=== PATIENT | male | born 1955 | race Caucasian/White ===

== ENCOUNTER 2019-08-07 07:34 | Inpatient (IN) | payer MEDICARE, MEDICAID ==
[~2019-08-07] VITALS: Ht 180.3 cm; Wt 114.8 kg
[2019-08-07 09:01] LABS: BASOPHILS % 0.8 % (0.0-2.0); EOSINOPHILS % 6.2 % (0.0-5.0); HEMATOCRIT. 33.2 % (42.0-52.0); HEMOGLOBIN. 11.3 g/dL (14.0-18.0); LYMPHOCYTES % 34.7 % (20.0-50.0); MEAN CORPUSCULAR HEMOGLOBIN 28.3 pg (28.0-32.0); MEAN CORPUSCULAR VOLUME 83.1 fL (80.0-94.0); MEAN PLATELET VOLUME 7.7 fl (7.4-10.4); MONOCYTES % 7.8 % (2.0-8.0); NEUTROPHILS % 50.5 % (40.0-76.0); PLATELET 228 x1000/uL (130-400); RED BLOOD CELL COUNT 3.99 mill/uL (4.7-6.1); RED CELL DISTRIBUTION WIDTH 14.3 % (11.6-14.6)
[2019-08-07 09:04] LABS: CHLORIDE 103 mEq/L (98-107)
[2019-08-07] MEDS ORDERED: FUROSEMIDE 40MG/4ML VIAL IVP ONE (11:15)
[2019-08-07] MEDS ORDERED: HYDROCODONE/ACETAMINOPHEN 5/325MG TABLET PO PRN (11:30)
[2019-08-07] MEDS ORDERED: CLINDAMYCIN 600 MG in DEXTROSE 5% WATER 50 ML IV ONE (11:30)
[2019-08-07] MEDS ORDERED: ACETAMINOPHEN 325MG TABLET PO PRN (11:30)
[2019-08-07] MEDS ORDERED: ONDANSETRON HCL 4MG/2ML INJ IV PRN (11:30)
[2019-08-07] MEDS ORDERED: CLINDAMYCIN 600MG PREMIX 50 ML IV NR (12:00)
[2019-08-07] MEDS ORDERED: ENOXAPARIN 40MG/0.4ML SYR SUBCUT ONE (12:00)
[2019-08-07 12:07] LABS: CLARITY URINE CLEAR (CLEAR); COLOR URINE YELLOW (YELLOW); KETONES URINE NEGATIVE (NEGATIVE); LEUKOCYTE ESTERASE URINE NEGATIVE (NEGATIVE); NITRITE URINE NEGATIVE (NEGATIVE); OCCULT BLOOD URINE TRACE (NEGATIVE); PH URINE 5.5 (4.5-8.0); PROTEIN URINE 2+ (NEGATIVE); UROBILINOGEN URINE 0.2 E.U./dL (0.2-1.0)
[2019-08-07 13:30] VITALS: BP 177/97
[2019-08-07] MEDS: AMLODIPINE 5MG TABLET PO SCH ×2 (15:29→21:13)
[2019-08-07] MEDS: ENOXAPARIN 30MG/0.3ML SYR SUBCUT SCH ×2 (15:30→21:13)
[2019-08-07 16:00] VITALS: BP 150/76
[2019-08-07] MEDS ORDERED: ATOR20TA65 MT (16:26)
[2019-08-07] MEDS ORDERED: LEVO100T9 PO (16:26)
[2019-08-07] MEDS ORDERED: SACU1TAB7 MT (16:26)
[2019-08-07] MEDS ORDERED: LOSA50TA41 MT (16:26)
[2019-08-07] MEDS ORDERED: ASPI-1393 MT (16:29)
[2019-08-07] MEDS ORDERED: CARV6.2548 MT (16:29)
[2019-08-07] MEDS ORDERED: CLONIDINE 0.1MG TABLET PO PRN (17:00)
[2019-08-07] MEDS: FUROSEMIDE 40MG/4ML VIAL IV SCH (17:43)
[2019-08-07] MEDS: POTASSIUM CHLORIDE 20MEQ TABLET SR PO SCH (17:44)
[2019-08-07 20:00] VITALS: BP 161/84
[2019-08-07] MEDS: ATORVASTATIN CALCIUM 10MG TABLET PO SCH (21:13)
[2019-08-07] MEDS: CARVEDILOL 6.25 MG TABLET PO SCH (21:13)
[2019-08-07 23:54] VITALS: BP 121/75
[2019-08-08 04:00] VITALS: BP 131/81
[2019-08-08] MEDS: FUROSEMIDE 40MG/4ML VIAL IV SCH ×2 (06:22→16:54)
[2019-08-08] MEDS: LEVOTHYROXINE SODIUM 100MCG TABLET PO SCH (06:22)
[2019-08-08 06:48] LABS: BASOPHILS % 0.9 % (0.0-2.0); EOSINOPHILS % 4.8 % (0.0-5.0); HEMATOCRIT. 34.1 % (42.0-52.0); HEMOGLOBIN. 11.7 g/dL (14.0-18.0); LYMPHOCYTES % 35.6 % (20.0-50.0); MEAN CORPUSCULAR HEMOGLOBIN 28.5 pg (28.0-32.0); MEAN PLATELET VOLUME 8.4 fl (7.4-10.4); MONOCYTES % 7.4 % (2.0-8.0); NEUTROPHILS % 51.3 % (40.0-76.0); PLATELET 215 x1000/uL (130-400); RED BLOOD CELL COUNT 4.11 mill/uL (4.7-6.1)
[2019-08-08 07:20] LABS: CHLORIDE 104 mEq/L (98-107)
[2019-08-08 07:26] LABS: PHOSPHORUS 4.5 mg/dL (2.5-4.9)
[2019-08-08 07:27] LABS: LDL CHOLESTEROL 81 mg/dL (5-100)
[2019-08-08 07:28] LABS: HDL CHOLESTEROL 26 mg/dL (40-59)
[2019-08-08 08:00] VITALS: BP 155/73
[2019-08-08] MEDS ORDERED: FUROSEMIDE 40MG/4ML VIAL IV SCH ×2 (08:30→09:00)
[2019-08-08] MEDS: POTASSIUM CHLORIDE 20MEQ TABLET SR PO SCH ×2 (09:01→16:54)
[2019-08-08] MEDS: AMLODIPINE 5MG TABLET PO SCH ×2 (09:01→20:42)
[2019-08-08] MEDS: ENOXAPARIN 30MG/0.3ML SYR SUBCUT SCH ×2 (09:02→20:42)
[2019-08-08] MEDS: CARVEDILOL 6.25 MG TABLET PO SCH ×2 (09:02→20:42)
[2019-08-08 12:00] VITALS: BP 118/63
[2019-08-08] MEDS: ASPIRIN 81MG EC TABLET PO SCH (13:29)
[2019-08-08 16:00] VITALS: BP 130/76
[2019-08-08 16:54] LABS: PHOSPHORUS 4.6 mg/dL (2.5-4.9)
[2019-08-08 20:00] VITALS: BP 124/81
[2019-08-08] MEDS: ATORVASTATIN CALCIUM 10MG TABLET PO SCH (20:42)
[2019-08-09] VITALS: BP 130/55
[2019-08-09 04:00] VITALS: BP 122/74
[2019-08-09] MEDS: LEVOTHYROXINE SODIUM 100MCG TABLET PO SCH (06:45)
[2019-08-09] MEDS: FUROSEMIDE 40MG/4ML VIAL IV SCH (06:45)
[2019-08-09 07:33] LABS: CHLORIDE 101 mEq/L (98-107)
[2019-08-09 07:34] LABS: BASOPHILS % 0.9 % (0.0-2.0); EOSINOPHILS % 4.8 % (0.0-5.0); HEMATOCRIT. 34.9 % (42.0-52.0); HEMOGLOBIN. 11.7 g/dL (14.0-18.0); MEAN CORPUSCULAR VOLUME 83.2 fL (80.0-94.0); MEAN PLATELET VOLUME 7.9 fl (7.4-10.4); MONOCYTES % 7.4 % (2.0-8.0); NEUTROPHILS % 43.9 % (40.0-76.0); PLATELET 239 x1000/uL (130-400); RED BLOOD CELL COUNT 4.19 mill/uL (4.7-6.1); RED CELL DISTRIBUTION WIDTH 14.1 % (11.6-14.6)
[2019-08-09 08:00] VITALS: BP 131/83
[2019-08-09] MEDS: POTASSIUM CHLORIDE 20MEQ TABLET SR PO SCH (09:00)
[2019-08-09] MEDS: ASPIRIN 81MG EC TABLET PO SCH (09:00)
[2019-08-09] MEDS: ENOXAPARIN 30MG/0.3ML SYR SUBCUT SCH (09:01)
[2019-08-09] MEDS: CARVEDILOL 6.25 MG TABLET PO SCH (09:01)
[2019-08-09] MEDS: AMLODIPINE 5MG TABLET PO SCH (09:01)
[2019-08-09 09:08] LABS: BG BASE EXCESS 2.5 mmol/L (-2.0-2.0); BG CARBOXYHEMOGLOBIN 0.9 % (0.5-1.5); BG DEOXYHEMOGLOBIN 6.8 % (0.0-5.0); BG FRACTION INSPIRED OXYGEN 21; BG HCO3 ACT 27.5 mmol/L (22.0-26.0); BG METHEMOGLOBIN 0.2 % (0.0-1.5); BG OXYGEN SATURATION 93.1 % (92.0-98.5); BG OXYHEMOGLOBIN 92.1 % (94.0-97.0); BG PH 7.413 (7.350-7.450); BG PO2 68.8 mmHg (75.0-100.0); BG SAMPLE SITE RIGHT RADIAL; BG TOTAL HEMOGLOBIN 12.8 g/dL (12.0-18.0); BG VENT MODE ROOM AIR
[2019-08-09 12:00] VITALS: BP 119/67
[2019-08-09 13:37] VITALS: BP 119/67
[2019-08-10] MEDS ORDERED: FUROSEMIDE 40MG/4ML VIAL IV SCH (09:00)
== END 2019-08-09 15:17 | disposition home or self-care (01) | DRG 602 ==
LOC: ER 07:34 → 8WST 11:25 → EDBEDREQSVC 11:48 → EDBEDREQ 11:49 → ENRESERV 12:15
PROVIDERS: ADMIT Family Medicine Adult Medicine; ATTEND Family Medicine Adult Medicine
DX: L03.115 Cellulitis of right lower limb (principal); N17.0 Acute kidney failure with tubular necrosis; N18.6 End stage renal disease; I13.2 Hypertensive heart and chronic kidney disease with heart failure and with stage 5 chronic kidney disease, or end stage renal disease; I42.0 Dilated cardiomyopathy; L03.116 Cellulitis of left lower limb; E03.9 Hypothyroidism, unspecified; E78.5 Hyperlipidemia, unspecified; E87.6 Hypokalemia; F32.9 Major depressive disorder, single episode, unspecified; M10.9 Gout, unspecified; I34.0 Nonrheumatic mitral (valve) insufficiency; I44.0 Atrioventricular block, first degree; I50.9 Heart failure, unspecified; Z79.899 Other long term (current) drug therapy; Z82.49 Family history of ischemic heart disease and other diseases of the circulatory system; Z91.14 Patient's other noncompliance with medication regimen; Z91.19 Patient's noncompliance with other medical treatment and regimen; Z99.2 Dependence on renal dialysis
CPT/HCPCS: 36415; 36600; 71045; 76770; 80048; 80061; 81003; 82375; 82805; 83735; 83880; 84100; 84443; 84484; 93005; 93306; 93970; 96365; 96375; 97161; 97165; 99285; G0378; J1650; J1940; J3490

== ENCOUNTER 2021-05-14 01:19 | Inpatient (IN) | payer MEDICARE, OTHER ==
[~2021-05-14] VITALS: Ht 180.3 cm; Wt 113.9 kg
[~2021-05-14 01:19] MED LIST: ASPI-1497 PO; ATOR20TA65 PO; CARV6.2548 MT; LEVO100T9 PO; LOSA50TA41 MT; SACU1TAB7 MT
[2021-05-14] MEDS ORDERED: ASPIRIN 81MG TABLET PO ONE (02:45)
[2021-05-14] MEDS ORDERED: ENALAPRIL 2.5MG/2ML VIAL 2ML IV ONE (02:45)
[2021-05-14] MEDS ORDERED: NITROGLYCERIN OINT 1GM/INCH UDPKT TD ONE (02:45)
[2021-05-14] MEDS ORDERED: ENALAPRIL 1.25MG/ML VIAL 1ML IV NR (03:00)
[2021-05-14 03:19] LABS: BASOPHILS % 1.2 % (0.0-2.0); EOSINOPHILS % 4.9 % (0.0-5.0); HEMATOCRIT. 38.1 % (42.0-52.0); HEMOGLOBIN. 12.6 g/dL (14.0-18.0); LYMPHOCYTES % 36.3 % (20.0-50.0); MEAN CORPUSCULAR HEMOGLOBIN 28.1 pg (28.0-32.0); MEAN CORPUSCULAR VOLUME 84.8 fL (80.0-94.0); MEAN PLATELET VOLUME 8.2 fl (7.4-10.4); MONOCYTES % 6.3 % (2.0-8.0); NEUTROPHILS % 51.3 % (40.0-76.0); PLATELET 222 x1000/uL (130-400); RED CELL DISTRIBUTION WIDTH 13.5 % (11.6-14.6)
[2021-05-14 03:29] LABS: CHLORIDE 106 mEq/L (98-107)
[2021-05-14] MEDS: CLONIDINE 0.1MG TABLET PO PRN (06:57)
[2021-05-14] MEDS ORDERED: ACETAMINOPHEN 325MG TABLET PO PRN (07:15)
[2021-05-14 08:00] VITALS: BP_SYST 139; BP_SYST 195; BP_DIAS 124; BP_DIAS 98
[2021-05-14] MEDS: LOSARTAN POTASSIUM 50 MG TABLET PO SCH (08:08)
[2021-05-14] MEDS: ENOXAPARIN 40MG/0.4ML SYR SUBCUT SCH (08:09)
[2021-05-14] MEDS: CARVEDILOL 12.5MG TABLET PO SCH ×2 (08:09→20:35)
[2021-05-14] MEDS ORDERED: ONDANSETRON HCL 4MG/2ML INJ IV PRN (10:00)
[2021-05-14] MEDS ORDERED: MAGNESIUM/ALUMINUM HYDROXIDE/SIMETHICONE 30ML UDC PO PRN (10:00)
[2021-05-14] MEDS ORDERED: HYDROCODONE/ACETAMINOPHEN 5/325MG TABLET PO PRN (10:00)
[2021-05-14] MEDS ORDERED: NALOXONE HCL 0.4MG/ML VIAL IV PRN (10:15)
[2021-05-14] MEDS: SODIUM CHLORIDE 0.9% 1,000 ML IV SCH ×2 (10:19→23:56)
[2021-05-14] MEDS: OMEPRAZOLE 20MG CAPSULE EXTENDED RELEASE PO SCH (10:19)
[2021-05-14 12:00] VITALS: BP 150/82
[2021-05-14] MEDS: CLONIDINE 0.2MG TABLET PO SCH ×2 (13:00→20:36)
[2021-05-14 13:07] LABS: *AMPHETAMINES SCREEN URINE NEGATIVE (NEGATIVE); *BARBITURATES SCREEN URINE NEGATIVE (NEGATIVE); *BENZODIAZEPINES SCREEN URINE NEGATIVE (NEGATIVE)
[2021-05-14 13:08] LABS: *COCAINE SCREEN URINE NEGATIVE (NEGATIVE); CANNABINOID URINE SCREEN NEGATIVE (NEGATIVE); OPIATES URINE SCREEN NEGATIVE (NEGATIVE); PHENCYCLIDINE URINE SCREEN NEGATIVE (NEGATIVE)
[2021-05-14 13:13] LABS: METHADONE URINE SCREEN NEGATIVE (NEGATIVE)
[2021-05-14 15:47] VITALS: BP 144/80
[2021-05-14 20:00] VITALS: BP 145/72
[2021-05-14] MEDS: ATORVASTATIN CALCIUM 20MG TABLET PO SCH (20:35)
[2021-05-15] VITALS: BP 147/69
[2021-05-15 04:00] VITALS: BP 152/87
[2021-05-15] MEDS: OMEPRAZOLE 20MG CAPSULE EXTENDED RELEASE PO SCH (05:17)
[2021-05-15] MEDS: CLONIDINE 0.2MG TABLET PO SCH ×3 (05:17→21:02)
[2021-05-15 05:32] LABS: PHOSPHORUS 3.7 mg/dL (2.5-4.9)
[2021-05-15 05:39] LABS: T4 FREE 0.46 ng/dL (0.76-1.46)
[2021-05-15 05:54] LABS: BASOPHILS % 0.8 % (0.0-2.0); EOSINOPHILS % 5.3 % (0.0-5.0); HEMATOCRIT. 33.4 % (42.0-52.0); HEMOGLOBIN. 11.3 g/dL (14.0-18.0); LYMPHOCYTES % 44.1 % (20.0-50.0); MEAN CORPUSCULAR HEMOGLOBIN 28.3 pg (28.0-32.0); MEAN CORPUSCULAR VOLUME 83.4 fL (80.0-94.0); MEAN PLATELET VOLUME 8.6 fl (7.4-10.4); MONOCYTES % 6.1 % (2.0-8.0); NEUTROPHILS % 43.7 % (40.0-76.0); PLATELET 189 x1000/uL (130-400); RED CELL DISTRIBUTION WIDTH 13.6 % (11.6-14.6)
[2021-05-15 08:00] VITALS: BP 143/78
[2021-05-15] MEDS: ENOXAPARIN 40MG/0.4ML SYR SUBCUT SCH (08:29)
[2021-05-15] MEDS: CARVEDILOL 12.5MG TABLET PO SCH ×2 (08:29→20:28)
[2021-05-15] MEDS: LOSARTAN POTASSIUM 50 MG TABLET PO SCH (08:29)
[2021-05-15 12:00] VITALS: BP 123/69
[2021-05-15] MEDS: SODIUM CHLORIDE 0.9% 1,000 ML IV SCH (12:32)
[2021-05-15 16:00] VITALS: BP 162/76
[2021-05-15] MEDS: LEVOTHYROXINE SODIUM 100MCG TABLET PO SCH (16:58)
[2021-05-15 20:00] VITALS: BP 153/84
[2021-05-15] MEDS: ATORVASTATIN CALCIUM 20MG TABLET PO SCH (21:02)
[2021-05-15] MEDS: ENOXAPARIN 30MG/0.3ML SYR SUBCUT SCH (21:03)
[2021-05-16] VITALS: BP 141/84
[2021-05-16] MEDS: SODIUM CHLORIDE 0.9% 1,000 ML IV SCH ×2 (02:06→14:37)
[2021-05-16 04:00] VITALS: BP 172/87
[2021-05-16] MEDS: CLONIDINE 0.2MG TABLET PO SCH ×3 (05:39→21:31)
[2021-05-16] MEDS: OMEPRAZOLE 20MG CAPSULE EXTENDED RELEASE PO SCH (05:40)
[2021-05-16] MEDS: LEVOTHYROXINE SODIUM 100MCG TABLET PO SCH (05:40)
[2021-05-16 07:38] LABS: BASOPHILS % 0.7 % (0.0-2.0); HEMOGLOBIN. 11.7 g/dL (14.0-18.0); LYMPHOCYTES % 42.8 % (20.0-50.0); MEAN CORPUSCULAR HEMOGLOBIN 27.6 pg (28.0-32.0); MEAN CORPUSCULAR VOLUME 82.7 fL (80.0-94.0); MEAN PLATELET VOLUME 8.4 fl (7.4-10.4); NEUTROPHILS % 43.5 % (40.0-76.0); PLATELET 198 x1000/uL (130-400); RED BLOOD CELL COUNT 4.23 mill/uL (4.7-6.1); RED CELL DISTRIBUTION WIDTH 13.8 % (11.6-14.6)
[2021-05-16 08:00] VITALS: BP 171/90
[2021-05-16] MEDS: LOSARTAN POTASSIUM 50 MG TABLET PO SCH (09:05)
[2021-05-16] MEDS: ASPIRIN 81MG EC TABLET PO SCH (09:05)
[2021-05-16] MEDS: CARVEDILOL 12.5MG TABLET PO SCH ×2 (09:06→21:00)
[2021-05-16] MEDS: ENOXAPARIN 30MG/0.3ML SYR SUBCUT SCH ×2 (09:06→21:30)
[2021-05-16] MEDS ORDERED: REGADENOSON 0.4 MG/5 ML IV NR (10:15)
[2021-05-16 12:00] VITALS: BP 137/70
[2021-05-16 16:00] VITALS: BP 145/75
[2021-05-16 20:00] VITALS: BP 128/79
[2021-05-16] MEDS: AMLODIPINE 5MG TABLET PO SCH (21:30)
[2021-05-16] MEDS: FAMOTIDINE 20MG TABLET PO SCH (21:30)
[2021-05-16] MEDS: ATORVASTATIN CALCIUM 20MG TABLET PO SCH (21:30)
[2021-05-16 23:49] LABS: CLARITY URINE CLEAR (CLEAR); COLOR URINE YELLOW (YELLOW); KETONES URINE NEGATIVE (NEGATIVE); LEUKOCYTE ESTERASE URINE NEGATIVE (NEGATIVE); NITRITE URINE NEGATIVE (NEGATIVE); OCCULT BLOOD URINE NEGATIVE (NEGATIVE); PH URINE 5.5 (4.5-8.0); PROTEIN URINE NEGATIVE (NEGATIVE); SPECIFIC GRAVITY URINE 1.006 (1.005-1.030); UROBILINOGEN URINE 0.2 E.U./dL (0.2-1.0)
[2021-05-17] VITALS: BP 162/85
[2021-05-17] MEDS: CLONIDINE 0.1MG TABLET PO PRN (00:19)
[2021-05-17] MEDS: SODIUM CHLORIDE 0.9% 1,000 ML IV SCH ×2 (03:29→17:25)
[2021-05-17 04:00] VITALS: BP 161/91
[2021-05-17] MEDS: CLONIDINE 0.2MG TABLET PO SCH ×3 (04:27→23:13)
[2021-05-17] MEDS: FAMOTIDINE 20MG TABLET PO SCH ×2 (05:50→21:07)
[2021-05-17] MEDS: LEVOTHYROXINE SODIUM 100MCG TABLET PO SCH (05:50)
[2021-05-17 06:40] LABS: BASOPHILS % 0.9 % (0.0-2.0); EOSINOPHILS % 6.9 % (0.0-5.0); HEMATOCRIT. 35.2 % (42.0-52.0); HEMOGLOBIN. 11.9 g/dL (14.0-18.0); LYMPHOCYTES % 45.5 % (20.0-50.0); MEAN CORPUSCULAR HEMOGLOBIN 28.4 pg (28.0-32.0); MEAN CORPUSCULAR VOLUME 84.2 fL (80.0-94.0); MEAN PLATELET VOLUME 8.4 fl (7.4-10.4); MONOCYTES % 6.6 % (2.0-8.0); NEUTROPHILS % 40.1 % (40.0-76.0); PLATELET 190 x1000/uL (130-400); RED BLOOD CELL COUNT 4.18 mill/uL (4.7-6.1); RED CELL DISTRIBUTION WIDTH 13.7 % (11.6-14.6)
[2021-05-17 08:00] VITALS: BP 158/89
[2021-05-17] MEDS: CARVEDILOL 12.5MG TABLET PO SCH ×2 (09:00→21:00)
[2021-05-17] MEDS: LOSARTAN POTASSIUM 50 MG TABLET PO SCH (09:00)
[2021-05-17] MEDS: AMLODIPINE 5MG TABLET PO SCH ×2 (09:08→21:08)
[2021-05-17] MEDS: ASPIRIN 81MG EC TABLET PO SCH (09:08)
[2021-05-17] MEDS: ENOXAPARIN 30MG/0.3ML SYR SUBCUT SCH ×2 (09:08→21:10)
[2021-05-17 09:33] LABS: PHOSPHORUS 3.3 mg/dL (2.5-4.9)
[2021-05-17] MEDS ORDERED: REGADENOSON 0.4 MG/5 ML IV ONE (10:06)
[2021-05-17 12:00] VITALS: BP 141/79
[2021-05-17 16:00] VITALS: BP 116/76
[2021-05-17 20:00] VITALS: BP 128/71
[2021-05-17] MEDS: ATORVASTATIN CALCIUM 20MG TABLET PO SCH (21:07)
[2021-05-18] VITALS: BP 146/75
[2021-05-18 04:00] VITALS: BP 143/93
[2021-05-18] MEDS: LEVOTHYROXINE SODIUM 100MCG TABLET PO SCH (04:58)
[2021-05-18] MEDS: FAMOTIDINE 20MG TABLET PO SCH ×2 (04:58→20:55)
[2021-05-18] MEDS: CLONIDINE 0.2MG TABLET PO SCH (04:59)
[2021-05-18] MEDS: SODIUM CHLORIDE 0.9% 1,000 ML IV SCH (05:07)
[2021-05-18 06:25] LABS: CHLORIDE 108 mEq/L (98-107)
[2021-05-18 06:37] LABS: PHOSPHORUS 3.2 mg/dL (2.5-4.9)
[2021-05-18 06:50] LABS: BASOPHILS % 0.6 % (0.0-2.0); EOSINOPHILS % 7.8 % (0.0-5.0); HEMATOCRIT. 34.9 % (42.0-52.0); HEMOGLOBIN. 11.8 g/dL (14.0-18.0); MEAN CORPUSCULAR VOLUME 82.5 fL (80.0-94.0); MEAN PLATELET VOLUME 8.7 fl (7.4-10.4); MONOCYTES % 6.1 % (2.0-8.0); NEUTROPHILS % 42.5 % (40.0-76.0); PLATELET 193 x1000/uL (130-400); RED BLOOD CELL COUNT 4.23 mill/uL (4.7-6.1); RED CELL DISTRIBUTION WIDTH 13.8 % (11.6-14.6)
[2021-05-18 07:52] LABS: VITAMIN B12 SERUM 320 pg/mL (211-911)
[2021-05-18 08:00] VITALS: BP 180/84
[2021-05-18] MEDS ORDERED: HEPARIN SODIUM 1,000 UNIT/1ML VIAL IV ONE (08:27)
[2021-05-18] MEDS ORDERED: NICARDIPINE 100MCG/ML 10ML VIAL (CATH LAB) IV ONE (08:27)
[2021-05-18] MEDS ORDERED: NITROGLYCERIN 50MCG/ML 10ML VIAL (CATH LAB) IV ONE (08:27)
[2021-05-18] MEDS: CARVEDILOL 12.5MG TABLET PO SCH (09:00)
[2021-05-18] MEDS: LOSARTAN POTASSIUM 50 MG TABLET PO SCH (09:40)
[2021-05-18] MEDS: AMLODIPINE 5MG TABLET PO SCH (09:40)
[2021-05-18] MEDS: ASPIRIN 81MG EC TABLET PO SCH (09:40)
[2021-05-18] MEDS ORDERED: COSYNTROPIN 0.25MG/ML VIAL IV NR (10:00)
[2021-05-18] MEDS ORDERED: IODIXANOL 320MG/ML 100 ML BOTTLE IV ONE (10:53)
[2021-05-18] MEDS ORDERED: LIDOCAINE HCL 1% 20ML VIAL (Pyxis) INJ ONE (10:53)
[2021-05-18] MEDS ORDERED: FENTANYL CITRATE/PF 50MCG/ML 2ML VIAL ONE (10:54)
[2021-05-18] MEDS ORDERED: MIDAZOLAM HCL 2 MG/2 ML VIAL ONE (10:54)
[2021-05-18] MEDS ORDERED: ACETAMINOPHEN 325MG TABLET PO PRN (12:15)
[2021-05-18] MEDS ORDERED: ATROPINE SULFATE 1MG/10ML SYR IV PRN (12:15)
[2021-05-18] MEDS: NIFEDIPINE XL 60MG TAB PO SCH (14:58)
[2021-05-18 16:00] VITALS: BP 169/83
[2021-05-18] MEDS: SODIUM CHL 0.45% + KCL 20MEQ/L 1,000 ML IV SCH (17:45)
[2021-05-18 20:00] VITALS: BP 126/78
[2021-05-18] MEDS: ATORVASTATIN CALCIUM 20MG TABLET PO SCH (20:55)
[2021-05-18] MEDS: CARVEDILOL 6.25 MG TABLET PO SCH (20:55)
[2021-05-18 22:00] VITALS: BP 93/54
[2021-05-19] VITALS (11 sets, daily range): BP systolic 106–146; BP diastolic 60–85
[2021-05-19] MEDS: SODIUM CHL 0.45% + KCL 20MEQ/L 1,000 ML IV SCH (04:51)
[2021-05-19] MEDS: LEVOTHYROXINE SODIUM 100MCG TABLET PO SCH (06:19)
[2021-05-19] MEDS: FAMOTIDINE 20MG TABLET PO SCH ×2 (06:19→21:27)
[2021-05-19] MEDS ORDERED: HYDROCORTISONE SOD SUCCINATE 100 MG/2 ML VIAL IV SCH (08:30)
[2021-05-19] MEDS: LOSARTAN POTASSIUM 50 MG TABLET PO SCH (09:00)
[2021-05-19] MEDS: NIFEDIPINE XL 60MG TAB PO SCH (09:00)
[2021-05-19] MEDS: CARVEDILOL 6.25 MG TABLET PO SCH ×2 (09:00→21:28)
[2021-05-19 09:06] LABS: FOLICLE STIMULATING HORMONE 1.2 mIU/mL (1.5-12.4); LUTEINIZING HORMONE 0.5 mIU/mL (1.7-8.6); PROLACTIN 19.6 ng/mL (4.0-15.2)
[2021-05-19] MEDS: ASPIRIN 81MG EC TABLET PO SCH (09:31)
[2021-05-19] MEDS: SODIUM CHLORIDE 0.9% 1,000 ML IV SCH ×2 (09:43→22:52)
[2021-05-19 10:47] LABS: HEMOGLOBIN. 12.4 g/dL (14.0-18.0); LYMPHOCYTES % 38.6 % (20.0-50.0); MEAN CORPUSCULAR HEMOGLOBIN 28.2 pg (28.0-32.0); MEAN CORPUSCULAR VOLUME 83.9 fL (80.0-94.0); MEAN PLATELET VOLUME 8.6 fl (7.4-10.4); MONOCYTES % 4.8 % (2.0-8.0); NEUTROPHILS % 50.6 % (40.0-76.0); PLATELET 218 x1000/uL (130-400); RED BLOOD CELL COUNT 4.41 mill/uL (4.7-6.1); RED CELL DISTRIBUTION WIDTH 13.6 % (11.6-14.6)
[2021-05-19 11:21] LABS: PHOSPHORUS 3.4 mg/dL (2.5-4.9)
[2021-05-19] MEDS ORDERED: MIDAZOLAM HCL 2 MG/2 ML VIAL ONE (14:32)
[2021-05-19] MEDS ORDERED: FENTANYL CITRATE/PF 50MCG/ML 2ML VIAL ONE (14:33)
[2021-05-19] MEDS ORDERED: IODIXANOL 320MG/ML 100 ML BOTTLE IV ONE (14:33)
[2021-05-19] MEDS ORDERED: LIDOCAINE HCL 1% 20ML VIAL (Pyxis) INJ ONE (14:33)
[2021-05-19] MEDS ORDERED: IOHEXOL-300 100 ML BOTTLE ONE (14:34)
[2021-05-19] MEDS ORDERED: HEPARIN SODIUM 1,000 UNIT/1ML VIAL IV ONE (16:00)
[2021-05-19] MEDS ORDERED: NICARDIPINE 100MCG/ML 10ML VIAL (CATH LAB) IV ONE (16:00)
[2021-05-19] MEDS ORDERED: NITROGLYCERIN 50MCG/ML 10ML VIAL (CATH LAB) IV ONE (16:00)
[2021-05-19] MEDS ORDERED: ATROPINE SULFATE 1MG/10ML SYR IV PRN (16:15)
[2021-05-19] MEDS ORDERED: ONDANSETRON HCL 4MG/2ML INJ IV PRN (16:15)
[2021-05-19] MEDS ORDERED: CLOPIDOGREL 75MG TABLET ONE (16:18)
[2021-05-19] MEDS ORDERED: ASPIRIN 325MG TABLET ONE (16:18)
[2021-05-19] MEDS ORDERED: MIDAZOLAM HCL 5 MG/5 ML VIAL ONE (17:18)
[2021-05-19] MEDS ORDERED: FENTANYL CITRATE/PF 50MCG/ML 5ML VIAL ONE (17:18)
[2021-05-19] MEDS: SERTRALINE HCL 25MG TABLET PO SCH (17:48)
[2021-05-19] MEDS: HYDROCORTISONE 10MG TABLET PO SCH (18:01)
[2021-05-19] MEDS: ATORVASTATIN CALCIUM 20MG TABLET PO SCH (21:27)
[2021-05-20] VITALS (11 sets, daily range): BP systolic 123–186; BP diastolic 65–99
[2021-05-20] MEDS: LEVOTHYROXINE SODIUM 100MCG TABLET PO SCH (05:58)
[2021-05-20] MEDS: FAMOTIDINE 20MG TABLET PO SCH ×2 (05:58→21:13)
[2021-05-20 06:37] LABS: BASOPHILS % 0.6 % (0.0-2.0); EOSINOPHILS % 1.7 % (0.0-5.0); HEMATOCRIT. 36.8 % (42.0-52.0); HEMOGLOBIN. 12.4 g/dL (14.0-18.0); LYMPHOCYTES % 27.6 % (20.0-50.0); MEAN CORPUSCULAR HEMOGLOBIN 27.9 pg (28.0-32.0); MEAN CORPUSCULAR VOLUME 83.1 fL (80.0-94.0); MEAN PLATELET VOLUME 8.1 fl (7.4-10.4); MONOCYTES % 6.4 % (2.0-8.0); NEUTROPHILS % 63.7 % (40.0-76.0); PLATELET 251 x1000/uL (130-400); RED BLOOD CELL COUNT 4.43 mill/uL (4.7-6.1); RED CELL DISTRIBUTION WIDTH 13.8 % (11.6-14.6)
[2021-05-20 06:43] LABS: PHOSPHORUS 2.8 mg/dL (2.5-4.9)
[2021-05-20] MEDS: ASPIRIN 81MG EC TABLET PO SCH (09:22)
[2021-05-20] MEDS: CLOPIDOGREL 75MG TABLET PO SCH (09:23)
[2021-05-20] MEDS: LOSARTAN POTASSIUM 100 MG TABLET PO SCH (09:23)
[2021-05-20] MEDS: HYDROCORTISONE 10MG TABLET PO SCH ×2 (09:23→17:12)
[2021-05-20] MEDS: SERTRALINE HCL 25MG TABLET PO SCH (09:23)
[2021-05-20] MEDS: NIFEDIPINE XL 60MG TAB PO SCH (09:25)
[2021-05-20] MEDS: CARVEDILOL 6.25 MG TABLET PO SCH ×2 (09:25→21:13)
[2021-05-20] MEDS: SODIUM CHLORIDE 0.9% 1,000 ML IV SCH (14:21)
[2021-05-20] MEDS: ATORVASTATIN CALCIUM 20MG TABLET PO SCH (21:12)
[2021-05-21] VITALS (7 sets, daily range): BP systolic 130–169; BP diastolic 68–98
[2021-05-21] MEDS: CLONIDINE 0.1MG TABLET PO PRN (02:52)
[2021-05-21] MEDS: ACETAMINOPHEN 325MG TABLET PO PRN ×2 (03:10→12:31)
[2021-05-21] MEDS: SODIUM CHLORIDE 0.9% 1,000 ML IV SCH (06:06)
[2021-05-21] MEDS: LEVOTHYROXINE SODIUM 100MCG TABLET PO SCH (06:06)
[2021-05-21] MEDS: FAMOTIDINE 20MG TABLET PO SCH (06:48)
[2021-05-21 07:12] LABS: TESTOSTERONE FREE <0.2 pg/mL (6.6-18.1)
[2021-05-21] MEDS: CLOPIDOGREL 75MG TABLET PO SCH (08:17)
[2021-05-21 08:18] LABS: BASOPHILS % 1.2 % (0.0-2.0); EOSINOPHILS % 3.6 % (0.0-5.0); HEMATOCRIT. 36.5 % (42.0-52.0); HEMOGLOBIN. 12.2 g/dL (14.0-18.0); LYMPHOCYTES % 38.4 % (20.0-50.0); MEAN CORPUSCULAR HEMOGLOBIN 27.8 pg (28.0-32.0); MEAN CORPUSCULAR VOLUME 83.1 fL (80.0-94.0); MEAN PLATELET VOLUME 8.2 fl (7.4-10.4); MONOCYTES % 5.2 % (2.0-8.0); NEUTROPHILS % 51.6 % (40.0-76.0); PLATELET 259 x1000/uL (130-400); RED BLOOD CELL COUNT 4.39 mill/uL (4.7-6.1); RED CELL DISTRIBUTION WIDTH 13.5 % (11.6-14.6)
[2021-05-21] MEDS: ASPIRIN 81MG EC TABLET PO SCH (08:18)
[2021-05-21] MEDS: HYDROCORTISONE 10MG TABLET PO SCH (08:18)
[2021-05-21] MEDS: LOSARTAN POTASSIUM 100 MG TABLET PO SCH (08:18)
[2021-05-21] MEDS: NIFEDIPINE XL 60MG TAB PO SCH (08:18)
[2021-05-21] MEDS: SERTRALINE HCL 25MG TABLET PO SCH (08:18)
[2021-05-21 08:44] LABS: PHOSPHORUS 3.3 mg/dL (2.5-4.9)
[2021-05-21] MEDS: CARVEDILOL 6.25 MG TABLET PO SCH (10:12)
[2021-05-21 17:06] LABS: ANTI-PARIETAL CELL AB 1.4 Units (0.0-20.0)
[2021-05-24 04:12] LABS: ALDOSTERONE 3.6 ng/dL (0.0-30.0)
== END 2021-05-21 13:55 | disposition home or self-care (01) | DRG 247 ==
LOC: ER 01:19 → 7EST 05:18 → ENRESERV 05:25 → 3WST 05-18 13:31
PROVIDERS: ADMIT Family Medicine Adult Medicine; ATTEND Family Medicine Adult Medicine
PROC: 4A023N7 Measurement of Cardiac Sampling and Pressure, Left Heart, Percutaneous Approach (ICD-10-PCS; 2021-05-18)
PROC: 027036Z Dilation of Coronary Artery, One Artery with Three Drug-eluting Intraluminal Devices, Percutaneous Approach (ICD-10-PCS; principal; 2021-05-19)
PROC: B211YZZ Fluoroscopy of Multiple Coronary Arteries using Other Contrast (ICD-10-PCS; 2021-05-19)
DX: I25.10 Atherosclerotic heart disease of native coronary artery without angina pectoris (principal); E44.0 Moderate protein-calorie malnutrition; N17.9 Acute kidney failure, unspecified; I13.0 Hypertensive heart and chronic kidney disease with heart failure and stage 1 through stage 4 chronic kidney disease, or unspecified chronic kidney disease; E27.49 Other adrenocortical insufficiency; K21.9 Gastro-esophageal reflux disease without esophagitis; E03.9 Hypothyroidism, unspecified; E78.5 Hyperlipidemia, unspecified; I16.0 Hypertensive urgency; N18.30 Chronic kidney disease, stage 3 unspecified; B35.1 Tinea unguium; D64.9 Anemia, unspecified; F32.9 Major depressive disorder, single episode, unspecified; I50.9 Heart failure, unspecified; Z20.822 Contact with and (suspected) exposure to COVID-19; R00.1 Bradycardia, unspecified; N20.0 Calculus of kidney; F12.90 Cannabis use, unspecified, uncomplicated; I25.82 Chronic total occlusion of coronary artery; Z82.49 Family history of ischemic heart disease and other diseases of the circulatory system; Z79.899 Other long term (current) drug therapy; Z79.82 Long term (current) use of aspirin; Z68.35 Body mass index [BMI] 35.0-35.9, adult; Z79.02 Long term (current) use of antithrombotics/antiplatelets; Z87.891 Personal history of nicotine dependence; Z91.14 Patient's other noncompliance with medication regimen; Z99.2 Dependence on renal dialysis; Z86.69 Personal history of other diseases of the nervous system and sense organs
CPT/HCPCS: 36415; 71045; 76770; 78452; 80048; 80053; 80061; 80305; 81003; 82024; 82088; 82533; 82607; 83001; 83002; 83735; 83880; 84100; 84146; 84402; 84403; 84439; 84443; 84484; 84550; 85025; 85347; 85379; 86340; 86376; 87426; 92943; 93005; 93017; 93306; 93454; 93458; 93970; 99291; A9500; C1760; C1769; C1874; C1887; C1893; J0834; J1644; J1650; J1720; J2250; J2785; J3010; J3480; J3490; J7030; Q9967; C1725

== ENCOUNTER 2021-06-10 12:47 | Inpatient (IN) | payer MEDICARE, OTHER ==
[~2021-06-10] VITALS: Ht 180.3 cm; Wt 99.8 kg
[~2021-06-10 12:47] MED LIST changes: -LOSA50TA41 MT; -SACU1TAB7 MT
[2021-06-10] MEDS ORDERED: SODIUM CHLORIDE 0.9% 1,000 ML IV ONE (13:30)
[2021-06-10 14:30] LABS: BASOPHILS % 1.7 % (0.0-2.0); EOSINOPHILS % 3.5 % (0.0-5.0); HEMATOCRIT. 40.5 % (42.0-52.0); HEMOGLOBIN. 13.9 g/dL (14.0-18.0); LYMPHOCYTES % 33.2 % (20.0-50.0); MEAN CORPUSCULAR HEMOGLOBIN 28.2 pg (28.0-32.0); MEAN CORPUSCULAR VOLUME 82.3 fL (80.0-94.0); MONOCYTES % 6.5 % (2.0-8.0); NEUTROPHILS % 55.1 % (40.0-76.0); PLATELET 299 x1000/uL (130-400); RED BLOOD CELL COUNT 4.92 mill/uL (4.7-6.1); RED CELL DISTRIBUTION WIDTH 13.3 % (11.6-14.6)
[2021-06-10 14:33] LABS: CHLORIDE 100 mEq/L (98-107)
[2021-06-10 14:56] LABS: CLARITY URINE CLEAR (CLEAR); COLOR URINE YELLOW (YELLOW); KETONES URINE NEGATIVE (NEGATIVE); LEUKOCYTE ESTERASE URINE NEGATIVE (NEGATIVE); NITRITE URINE NEGATIVE (NEGATIVE); OCCULT BLOOD URINE NEGATIVE (NEGATIVE); PROTEIN URINE TRACE (NEGATIVE); SPECIFIC GRAVITY URINE 1.013 (1.005-1.030); UROBILINOGEN URINE 0.2 E.U./dL (0.2-1.0)
[2021-06-10] MEDS ORDERED: ASPIRIN 325MG EC TABLET PO ONE (16:30)
[2021-06-10 22:17] VITALS: BP 122/81
[2021-06-10 22:51] VITALS: BP 122/81
[2021-06-10] MEDS ORDERED: ONDANSETRON HCL 4MG/2ML INJ IV PRN (23:45)
[2021-06-10] MEDS ORDERED: CLONIDINE 0.1MG TABLET PO PRN (23:45)
[2021-06-10] MEDS ORDERED: ZOLPIDEM TARTRATE 5MG TABLET PO PRN (23:45)
[2021-06-10] MEDS ORDERED: ACETAMINOPHEN 325MG TABLET PO PRN (23:45)
[2021-06-11] VITALS (20 sets, daily range): BP systolic 94–142; BP diastolic 59–86
[2021-06-11] MEDS ORDERED: LOSA100T32 PO (00:05)
[2021-06-11] MEDS ORDERED: CLOP-31 PO (00:05)
[2021-06-11] MEDS ORDERED: SERT25TA PO (00:05)
[2021-06-11] MEDS ORDERED: HYDR5TAB13 PO (00:05)
[2021-06-11] MEDS ORDERED: HYDR-4379 PO (00:05)
[2021-06-11] MEDS: LEVOTHYROXINE SODIUM 100MCG TABLET PO SCH (06:44)
[2021-06-11 06:54] LABS: BASOPHILS % 1.2 % (0.0-2.0); EOSINOPHILS % 4.4 % (0.0-5.0); HEMATOCRIT. 38.5 % (42.0-52.0); HEMOGLOBIN. 13.1 g/dL (14.0-18.0); LYMPHOCYTES % 35.2 % (20.0-50.0); MEAN CORPUSCULAR HEMOGLOBIN 27.8 pg (28.0-32.0); MEAN CORPUSCULAR VOLUME 81.8 fL (80.0-94.0); MEAN PLATELET VOLUME 8.9 fl (7.4-10.4); MONOCYTES % 6.3 % (2.0-8.0); NEUTROPHILS % 52.9 % (40.0-76.0); PLATELET 264 x1000/uL (130-400); RED BLOOD CELL COUNT 4.71 mill/uL (4.7-6.1); RED CELL DISTRIBUTION WIDTH 13.4 % (11.6-14.6)
[2021-06-11] MEDS: ASPIRIN 81MG TABLET PO SCH (09:00)
[2021-06-11] MEDS: LOSARTAN POTASSIUM 100 MG TABLET PO SCH (09:00)
[2021-06-11] MEDS: HYDROCORTISONE 10MG TABLET PO SCH ×2 (09:00→17:32)
[2021-06-11] MEDS: CLOPIDOGREL 75MG TABLET PO SCH (09:01)
[2021-06-11] MEDS: SERTRALINE HCL 25MG TABLET PO SCH (09:01)
[2021-06-11] MEDS: CARVEDILOL 6.25 MG TABLET PO SCH ×2 (09:01→20:42)
[2021-06-11] MEDS: FAMOTIDINE 20MG TABLET PO SCH (09:02)
[2021-06-11] MEDS: ATORVASTATIN CALCIUM 20MG TABLET PO SCH (20:42)
[2021-06-12] VITALS (23 sets, daily range): BP systolic 88–158; BP diastolic 55–98
[2021-06-12] MEDS: LEVOTHYROXINE SODIUM 100MCG TABLET PO SCH (06:21)
[2021-06-12] MEDS: ASPIRIN 81MG TABLET PO SCH (08:54)
[2021-06-12] MEDS: CLOPIDOGREL 75MG TABLET PO SCH (08:55)
[2021-06-12] MEDS: HYDROCORTISONE 10MG TABLET PO SCH ×2 (08:55→16:54)
[2021-06-12] MEDS: LOSARTAN POTASSIUM 100 MG TABLET PO SCH (08:55)
[2021-06-12] MEDS: SERTRALINE HCL 25MG TABLET PO SCH (08:55)
[2021-06-12] MEDS: CARVEDILOL 6.25 MG TABLET PO SCH ×2 (08:57→20:54)
[2021-06-12] MEDS: FAMOTIDINE 20MG TABLET PO SCH (08:57)
[2021-06-12] MEDS ORDERED: LACTULOSE 20G/30ML UDC PO PRN (12:15)
[2021-06-12] MEDS: DOCUSATE SODIUM 100MG CAPSULE PO SCH ×2 (15:21→20:53)
[2021-06-12] MEDS: ATORVASTATIN CALCIUM 20MG TABLET PO SCH (20:53)
[2021-06-13] VITALS (16 sets, daily range): BP systolic 91–176; BP diastolic 44–101
[2021-06-13] MEDS: LEVOTHYROXINE SODIUM 100MCG TABLET PO SCH (05:57)
[2021-06-13 07:14] LABS: BASOPHILS % 0.8 % (0.0-2.0); EOSINOPHILS % 4.5 % (0.0-5.0); HEMATOCRIT. 36.3 % (42.0-52.0); HEMOGLOBIN. 11.9 g/dL (14.0-18.0); LYMPHOCYTES % 41.7 % (20.0-50.0); MEAN CORPUSCULAR HEMOGLOBIN 27.6 pg (28.0-32.0); MEAN CORPUSCULAR VOLUME 84.5 fL (80.0-94.0); MONOCYTES % 8.7 % (2.0-8.0); NEUTROPHILS % 44.3 % (40.0-76.0); PLATELET 220 x1000/uL (130-400); RED CELL DISTRIBUTION WIDTH 13.3 % (11.6-14.6)
[2021-06-13] MEDS: DOCUSATE SODIUM 100MG CAPSULE PO SCH ×2 (07:52→17:21)
[2021-06-13] MEDS: CLOPIDOGREL 75MG TABLET PO SCH (08:38)
[2021-06-13] MEDS: SERTRALINE HCL 25MG TABLET PO SCH (08:38)
[2021-06-13] MEDS: ASPIRIN 81MG TABLET PO SCH (08:38)
[2021-06-13] MEDS: FAMOTIDINE 20MG TABLET PO SCH (08:39)
[2021-06-13] MEDS: CARVEDILOL 6.25 MG TABLET PO SCH (08:39)
[2021-06-13] MEDS: HYDROCORTISONE 10MG TABLET PO SCH ×2 (08:39→17:21)
[2021-06-13] MEDS ORDERED: LOSARTAN POTASSIUM 25 MG TABLET PO SCH (09:00)
[2021-06-13] MEDS ORDERED: LOSA25TA3 PO (14:58)
== END 2021-06-13 20:48 | DRG 73 ==
LOC: ER 12:47 → UNDOADMIN 19:21 → 3WST 19:21 → EDBEDREQ 19:36 → EDBEDREQTM 19:36 → ENRESERV 20:48 → ER 22:04 → UNDOADMIN 06-13 08:00 → 4WST 06-13 08:00 → UNDOADMIN 06-13 19:58 → UNDODISIN 06-13 20:48
PROVIDERS: ADMIT Family Medicine Adult Medicine; ATTEND Family Medicine Adult Medicine
DX: G90.8 Other disorders of autonomic nervous system (principal); N17.0 Acute kidney failure with tubular necrosis; E27.40 Unspecified adrenocortical insufficiency; I16.1 Hypertensive emergency; I12.9 Hypertensive chronic kidney disease with stage 1 through stage 4 chronic kidney disease, or unspecified chronic kidney disease; E11.22 Type 2 diabetes mellitus with diabetic chronic kidney disease; N18.9 Chronic kidney disease, unspecified; E03.9 Hypothyroidism, unspecified; I25.10 Atherosclerotic heart disease of native coronary artery without angina pectoris; E78.5 Hyperlipidemia, unspecified; D64.9 Anemia, unspecified; Z95.5 Presence of coronary angioplasty implant and graft; Z79.82 Long term (current) use of aspirin; Z79.2 Long term (current) use of antibiotics; Z79.899 Other long term (current) drug therapy; Z91.19 Patient's noncompliance with other medical treatment and regimen
CPT/HCPCS: 36415; 71045; 80048; 80053; 81003; 82962; 84484; 85025; 93005; 97162; 97166; 99285; J7030

== ENCOUNTER 2021-06-13 19:58 | Inpatient (IN) | payer MEDICARE, OTHER ==
[~2021-06-13] VITALS: Ht 180.3 cm; Wt 95.5 kg
[2021-06-13 19:58] VITALS: BP 156/88
[~2021-06-13 19:58] MED LIST changes: +CLOP-31 PO; +HYDR-4379 PO; +HYDR5TAB13 PO; +LOSA100T32 PO; +LOSA25TA3 PO; +SERT25TA PO
[2021-06-13 20:00] VITALS: BP 156/88
[2021-06-13] MEDS ORDERED: ZOLPIDEM TARTRATE 5MG TABLET PO PRN (23:15)
[2021-06-13] MEDS ORDERED: ACETAMINOPHEN 650MG/20.3ML UDC PO PRN (23:15)
[2021-06-13] MEDS ORDERED: ONDANSETRON HCL 4MG TABLET PO PRN (23:15)
[2021-06-13] MEDS ORDERED: LACTULOSE 20G/30ML UDC PO PRN (23:15)
[2021-06-14] MEDS: CARVEDILOL 6.25 MG TABLET PO SCH ×4 (01:12→20:23)
[2021-06-14] MEDS: ATORVASTATIN CALCIUM 20MG TABLET PO SCH ×2 (01:12→20:23)
[2021-06-14 02:34] VITALS: BP_SYST 130; BP_SYST 156; BP_DIAS 72; BP_DIAS 88
[2021-06-14] MEDS: LEVOTHYROXINE SODIUM 100MCG TABLET PO SCH (06:28)
[2021-06-14 07:15] LABS: EOSINOPHILS % 3.8 % (0.0-5.0); HEMATOCRIT. 36.8 % (42.0-52.0); LYMPHOCYTES % 40.6 % (20.0-50.0); MEAN CORPUSCULAR HEMOGLOBIN 27.8 pg (28.0-32.0); MONOCYTES % 7.8 % (2.0-8.0); NEUTROPHILS % 46.8 % (40.0-76.0); PLATELET 205 x1000/uL (130-400); RED BLOOD CELL COUNT 4.33 mill/uL (4.7-6.1); RED CELL DISTRIBUTION WIDTH 13.5 % (11.6-14.6)
[2021-06-14 07:27] LABS: CHLORIDE 107 mEq/L (98-107)
[2021-06-14] MEDS ORDERED: BISACODYL 5MG TABLET PO PRN (08:00)
[2021-06-14 08:22] VITALS: BP 147/87
[2021-06-14] MEDS: SERTRALINE HCL 25MG TABLET PO SCH (08:37)
[2021-06-14] MEDS: ASPIRIN 81MG TABLET PO SCH (08:37)
[2021-06-14] MEDS: FAMOTIDINE 20MG TABLET PO SCH (08:38)
[2021-06-14] MEDS: DOCUSATE SODIUM 100MG CAPSULE PO SCH ×2 (08:38→17:20)
[2021-06-14] MEDS: LOSARTAN POTASSIUM 25 MG TABLET PO SCH (08:38)
[2021-06-14] MEDS: CLOPIDOGREL 75MG TABLET PO SCH (08:38)
[2021-06-14] MEDS ORDERED: HYDROCORTISONE 10MG TABLET PO SCH ×2 (09:00→18:00)
[2021-06-14] MEDS: HYDROCORTISONE 10MG TABLET PO SCH (17:20)
[2021-06-14] MEDS ORDERED: SODIUM POLYSTYRENE SULFONATE 15 G/60 ML BOT PO NR (19:00)
[2021-06-14 20:00] VITALS: BP 134/82
[2021-06-15] MEDS: LEVOTHYROXINE SODIUM 100MCG TABLET PO SCH (06:32)
[2021-06-15 06:40] LABS: BASOPHILS % 1.1 % (0.0-2.0); EOSINOPHILS % 4.3 % (0.0-5.0); HEMATOCRIT. 33.3 % (42.0-52.0); HEMOGLOBIN. 11.2 g/dL (14.0-18.0); LYMPHOCYTES % 39.5 % (20.0-50.0); MEAN CORPUSCULAR HEMOGLOBIN 28.1 pg (28.0-32.0); MEAN CORPUSCULAR VOLUME 83.3 fL (80.0-94.0); MEAN PLATELET VOLUME 8.8 fl (7.4-10.4); NEUTROPHILS % 47.1 % (40.0-76.0); PLATELET 196 x1000/uL (130-400); RED CELL DISTRIBUTION WIDTH 13.1 % (11.6-14.6)
[2021-06-15 06:57] LABS: T4 FREE 0.99 ng/dL (0.76-1.46)
[2021-06-15 07:15] LABS: FOLIC ACID (FOLATE) SERUM 7.3 ng/mL (>5.38)
[2021-06-15 08:00] VITALS: BP 155/85
[2021-06-15] MEDS: HYDROCORTISONE 10MG TABLET PO SCH ×2 (09:57→16:53)
[2021-06-15] MEDS: DOCUSATE SODIUM 100MG CAPSULE PO SCH ×2 (09:57→17:00)
[2021-06-15] MEDS: ASPIRIN 81MG TABLET PO SCH (09:57)
[2021-06-15] MEDS: LOSARTAN POTASSIUM 25 MG TABLET PO SCH (09:58)
[2021-06-15] MEDS: CARVEDILOL 6.25 MG TABLET PO SCH ×2 (09:58→20:53)
[2021-06-15] MEDS: CLOPIDOGREL 75MG TABLET PO SCH (09:58)
[2021-06-15] MEDS: FAMOTIDINE 20MG TABLET PO SCH (09:58)
[2021-06-15] MEDS: SERTRALINE HCL 25MG TABLET PO SCH (11:35)
[2021-06-15] MEDS ORDERED: SODIUM CHLORIDE 0.9% 1,000 ML IV SCH (14:30)
[2021-06-15] MEDS: CYANOCOBALAMIN 1000MCG/ML VIAL IM SCH (16:53)
[2021-06-15 20:52] VITALS: BP 134/87
[2021-06-15] MEDS: ATORVASTATIN CALCIUM 20MG TABLET PO SCH (20:53)
[2021-06-16] MEDS: LEVOTHYROXINE SODIUM 100MCG TABLET PO SCH (06:27)
[2021-06-16 07:41] LABS: BASOPHILS % 0.9 % (0.0-2.0); EOSINOPHILS % 3.4 % (0.0-5.0); HEMATOCRIT. 31.8 % (42.0-52.0); HEMOGLOBIN. 10.7 g/dL (14.0-18.0); LYMPHOCYTES % 38.6 % (20.0-50.0); MEAN CORPUSCULAR HEMOGLOBIN 28.1 pg (28.0-32.0); MEAN CORPUSCULAR VOLUME 83.7 fL (80.0-94.0); NEUTROPHILS % 51.1 % (40.0-76.0); PLATELET 195 x1000/uL (130-400); RED CELL DISTRIBUTION WIDTH 13.1 % (11.6-14.6)
[2021-06-16 08:00] VITALS: BP 163/89
[2021-06-16] MEDS: ASPIRIN 81MG TABLET PO SCH (08:48)
[2021-06-16] MEDS: CLOPIDOGREL 75MG TABLET PO SCH (08:48)
[2021-06-16] MEDS: CARVEDILOL 6.25 MG TABLET PO SCH ×2 (08:49→21:44)
[2021-06-16] MEDS: CLONIDINE 0.1MG TABLET PO PRN (08:49)
[2021-06-16] MEDS: SERTRALINE HCL 25MG TABLET PO SCH (08:49)
[2021-06-16] MEDS: FAMOTIDINE 20MG TABLET PO SCH (08:49)
[2021-06-16] MEDS: CYANOCOBALAMIN 1000MCG/ML VIAL IM SCH (08:49)
[2021-06-16] MEDS: HYDROCORTISONE 10MG TABLET PO SCH ×2 (08:50→17:00)
[2021-06-16] MEDS: DOCUSATE SODIUM 100MG CAPSULE PO SCH ×2 (08:50→17:00)
[2021-06-16] MEDS: SODIUM CHLORIDE 0.9% 1,000 ML IV SCH (17:37)
[2021-06-16 20:15] VITALS: BP 141/67
[2021-06-16] MEDS: ATORVASTATIN CALCIUM 20MG TABLET PO SCH (21:44)
[2021-06-17] MEDS: SODIUM CHLORIDE 0.9% 1,000 ML IV SCH ×2 (06:10→18:51)
[2021-06-17] MEDS: LEVOTHYROXINE SODIUM 100MCG TABLET PO SCH (06:11)
[2021-06-17 06:53] LABS: BASOPHILS % 0.9 % (0.0-2.0); EOSINOPHILS % 2.6 % (0.0-5.0); HEMATOCRIT. 32.4 % (42.0-52.0); LYMPHOCYTES % 36.2 % (20.0-50.0); MEAN CORPUSCULAR HEMOGLOBIN 28.1 pg (28.0-32.0); MEAN CORPUSCULAR VOLUME 82.9 fL (80.0-94.0); MEAN PLATELET VOLUME 8.8 fl (7.4-10.4); MONOCYTES % 6.2 % (2.0-8.0); NEUTROPHILS % 54.1 % (40.0-76.0); PLATELET 195 x1000/uL (130-400); RED CELL DISTRIBUTION WIDTH 13.3 % (11.6-14.6)
[2021-06-17 08:00] VITALS: BP 173/86
[2021-06-17] MEDS: FAMOTIDINE 20MG TABLET PO SCH (08:27)
[2021-06-17] MEDS: DOCUSATE SODIUM 100MG CAPSULE PO SCH ×2 (08:27→16:03)
[2021-06-17] MEDS: CLOPIDOGREL 75MG TABLET PO SCH (08:27)
[2021-06-17] MEDS: ASPIRIN 81MG TABLET PO SCH (08:27)
[2021-06-17] MEDS: HYDROCORTISONE 10MG TABLET PO SCH ×2 (08:28→16:03)
[2021-06-17] MEDS: CYANOCOBALAMIN 1000MCG/ML VIAL IM SCH (08:28)
[2021-06-17] MEDS: CARVEDILOL 6.25 MG TABLET PO SCH ×3 (08:28→23:01)
[2021-06-17] MEDS: SERTRALINE HCL 25MG TABLET PO SCH (08:28)
[2021-06-17 09:00] VITALS: BP 146/82
[2021-06-17] MEDS ORDERED: LOSARTAN POTASSIUM 25 MG TABLET PO SCH (09:00)
[2021-06-17 20:00] VITALS: BP 102/60
[2021-06-17] MEDS: ATORVASTATIN CALCIUM 20MG TABLET PO SCH (22:15)
[2021-06-18] MEDS: LEVOTHYROXINE SODIUM 100MCG TABLET PO SCH (06:38)
[2021-06-18 08:00] VITALS: BP 131/62
[2021-06-18] MEDS: AMLODIPINE 2.5MG TABLET PO SCH (08:39)
[2021-06-18] MEDS: DOCUSATE SODIUM 100MG CAPSULE PO SCH ×2 (08:39→16:15)
[2021-06-18] MEDS: FAMOTIDINE 20MG TABLET PO SCH (08:40)
[2021-06-18] MEDS: SERTRALINE HCL 25MG TABLET PO SCH (08:40)
[2021-06-18] MEDS: ASPIRIN 81MG TABLET PO SCH (08:40)
[2021-06-18] MEDS: CLOPIDOGREL 75MG TABLET PO SCH (08:40)
[2021-06-18] MEDS: HYDROCORTISONE 10MG TABLET PO SCH ×2 (08:40→16:15)
[2021-06-18] MEDS: CYANOCOBALAMIN 1000MCG/ML VIAL IM SCH (08:40)
[2021-06-18] MEDS ORDERED: TESTOSTERONE CYPIONATE IM NR ×3 (09:00→12:30)
[2021-06-18 14:25] LABS: CALCIUM URINE (RAW) <5.0 mg/dL mg/dL; CALCIUM URINE 24 HR 115.2 mg/24hr (<300)
[2021-06-18 14:28] LABS: URIC ACID URINE (RAW) 17 mg/dL; URIC ACID URINE 24 HR 400 mg/24hr (250-750)
[2021-06-18] MEDS: SODIUM CHLORIDE 0.9% 1,000 ML IV SCH (15:33)
[2021-06-18 20:00] VITALS: BP 144/82
[2021-06-18] MEDS: ATORVASTATIN CALCIUM 20MG TABLET PO SCH (20:41)
[2021-06-18] MEDS: CARVEDILOL 6.25 MG TABLET PO SCH (20:41)
[2021-06-19] MEDS: SODIUM CHLORIDE 0.9% 1,000 ML IV SCH ×3 (03:16→21:02)
[2021-06-19] MEDS: LEVOTHYROXINE SODIUM 100MCG TABLET PO SCH (06:15)
[2021-06-19 08:00] VITALS: BP 184/90
[2021-06-19 09:20] LABS: CHLORIDE 109 mEq/L (98-107)
[2021-06-19] MEDS: DOCUSATE SODIUM 100MG CAPSULE PO SCH ×2 (09:37→17:37)
[2021-06-19] MEDS: CLOPIDOGREL 75MG TABLET PO SCH (09:37)
[2021-06-19] MEDS: CARVEDILOL 6.25 MG TABLET PO SCH ×2 (09:37→21:00)
[2021-06-19] MEDS: FAMOTIDINE 20MG TABLET PO SCH (09:37)
[2021-06-19] MEDS: AMLODIPINE 2.5MG TABLET PO SCH ×3 (09:38→21:01)
[2021-06-19] MEDS: HYDROCORTISONE 10MG TABLET PO SCH ×2 (09:38→17:37)
[2021-06-19] MEDS: CYANOCOBALAMIN 1000MCG/ML VIAL IM SCH (09:38)
[2021-06-19] MEDS: SERTRALINE HCL 25MG TABLET PO SCH (09:38)
[2021-06-19] MEDS: ASPIRIN 81MG TABLET PO SCH (09:38)
[2021-06-19 11:20] VITALS: BP 171/94
[2021-06-19] MEDS: CLONIDINE 0.1MG TABLET PO PRN (11:26)
[2021-06-19 13:36] VITALS: BP 113/64
[2021-06-19] MEDS: ACETAMINOPHEN 325MG TABLET PO PRN (14:41)
[2021-06-19 14:45] VITALS: BP 111/63
[2021-06-19 14:50] VITALS: BP 77/46
[2021-06-19 20:00] VITALS: BP_SYST 118; BP_SYST 133; BP_DIAS 60; BP_DIAS 76
[2021-06-19] MEDS: ATORVASTATIN CALCIUM 20MG TABLET PO SCH (20:59)
[2021-06-19] MEDS: ZOLPIDEM TARTRATE 5MG TABLET PO PRN (23:07)
[2021-06-20] MEDS: LEVOTHYROXINE SODIUM 100MCG TABLET PO SCH (06:53)
[2021-06-20 07:38] LABS: BASOPHILS % 0.7 % (0.0-2.0); EOSINOPHILS % 2.6 % (0.0-5.0); HEMATOCRIT. 32.9 % (42.0-52.0); HEMOGLOBIN. 10.9 g/dL (14.0-18.0); LYMPHOCYTES % 34.5 % (20.0-50.0); MEAN CORPUSCULAR HEMOGLOBIN 27.7 pg (28.0-32.0); MEAN CORPUSCULAR VOLUME 83.8 fL (80.0-94.0); MEAN PLATELET VOLUME 8.6 fl (7.4-10.4); MONOCYTES % 7.5 % (2.0-8.0); NEUTROPHILS % 54.7 % (40.0-76.0); PLATELET 234 x1000/uL (130-400); RED BLOOD CELL COUNT 3.93 mill/uL (4.7-6.1); RED CELL DISTRIBUTION WIDTH 13.3 % (11.6-14.6)
[2021-06-20 07:44] VITALS: BP 166/95
[2021-06-20] MEDS: DOCUSATE SODIUM 100MG CAPSULE PO SCH ×2 (08:22→17:37)
[2021-06-20] MEDS: ASPIRIN 81MG TABLET PO SCH (08:22)
[2021-06-20] MEDS: HYDROCORTISONE 10MG TABLET PO SCH ×2 (08:23→17:37)
[2021-06-20] MEDS: SERTRALINE HCL 25MG TABLET PO SCH (08:23)
[2021-06-20] MEDS: CLOPIDOGREL 75MG TABLET PO SCH (08:23)
[2021-06-20] MEDS: AMLODIPINE 2.5MG TABLET PO SCH ×2 (08:23→21:18)
[2021-06-20] MEDS: CARVEDILOL 6.25 MG TABLET PO SCH ×2 (08:23→21:18)
[2021-06-20] MEDS: FAMOTIDINE 20MG TABLET PO SCH (08:23)
[2021-06-20 17:09] LABS: 25-HYDROXY VITAMIN D3 4.9 ng/mL (.)
[2021-06-20] MEDS: SODIUM CHLORIDE 0.9% 1,000 ML IV SCH (17:38)
[2021-06-20 20:00] VITALS: BP 148/66
[2021-06-20] MEDS: ATORVASTATIN CALCIUM 20MG TABLET PO SCH (21:17)
[2021-06-21] MEDS: ACETAMINOPHEN 325MG TABLET PO PRN (01:58)
[2021-06-21] MEDS: LEVOTHYROXINE SODIUM 100MCG TABLET PO SCH (06:00)
[2021-06-21] MEDS: SODIUM CHLORIDE 0.9% 1,000 ML IV SCH ×2 (06:01→21:33)
[2021-06-21 08:24] VITALS: BP 193/96
[2021-06-21] MEDS: CLOPIDOGREL 75MG TABLET PO SCH (08:30)
[2021-06-21] MEDS: FAMOTIDINE 20MG TABLET PO SCH (08:30)
[2021-06-21] MEDS: DOCUSATE SODIUM 100MG CAPSULE PO SCH ×2 (08:30→17:42)
[2021-06-21] MEDS: HYDROCORTISONE 10MG TABLET PO SCH ×2 (08:30→17:42)
[2021-06-21] MEDS: SERTRALINE HCL 25MG TABLET PO SCH (08:30)
[2021-06-21] MEDS: ASPIRIN 81MG TABLET PO SCH (08:30)
[2021-06-21] MEDS: AMLODIPINE 2.5MG TABLET PO SCH (08:31)
[2021-06-21] MEDS: CARVEDILOL 6.25 MG TABLET PO SCH (08:31)
[2021-06-21 09:30] VITALS: BP 174/71
[2021-06-21 10:30] VITALS: BP_SYST 118; BP_SYST 132; BP_SYST 93; BP_DIAS 66; BP_DIAS 74; BP_DIAS 75
[2021-06-21 13:43] VITALS: BP 135/81
[2021-06-21] MEDS ORDERED: FLUDROCORTISONE ACETATE 0.1MG TABLET PO NR (13:45)
[2021-06-21] MEDS ORDERED: ERGOCALCIFEROL 50000UNITS CAPSULE PO SCH (15:00)
[2021-06-21 20:00] VITALS: BP_SYST 130; BP_SYST 147; BP_DIAS 66; BP_DIAS 68
[2021-06-21] MEDS: ATORVASTATIN CALCIUM 20MG TABLET PO SCH (21:34)
[2021-06-21] MEDS: CARVEDILOL 3.125 MG TABLET PO SCH (21:35)
[2021-06-21] MEDS: ZOLPIDEM TARTRATE 5MG TABLET PO PRN (23:06)
[2021-06-22] MEDS: LEVOTHYROXINE SODIUM 100MCG TABLET PO SCH (05:58)
[2021-06-22 08:00] VITALS: BP 192/82
[2021-06-22] MEDS: HYDROCORTISONE 10MG TABLET PO SCH ×2 (08:04→17:29)
[2021-06-22] MEDS: AMLODIPINE 2.5MG TABLET PO SCH (08:04)
[2021-06-22] MEDS: DOCUSATE SODIUM 100MG CAPSULE PO SCH ×2 (08:04→17:29)
[2021-06-22] MEDS: CLOPIDOGREL 75MG TABLET PO SCH (08:04)
[2021-06-22] MEDS: FAMOTIDINE 20MG TABLET PO SCH (08:05)
[2021-06-22] MEDS: CARVEDILOL 3.125 MG TABLET PO SCH ×2 (08:05→21:17)
[2021-06-22] MEDS: SERTRALINE HCL 25MG TABLET PO SCH (08:05)
[2021-06-22] MEDS: FLUDROCORTISONE ACETATE 0.1MG TABLET PO SCH (08:05)
[2021-06-22] MEDS: ASPIRIN 81MG TABLET PO SCH (08:05)
[2021-06-22] MEDS: CLONIDINE 0.1MG TABLET PO PRN (08:58)
[2021-06-22 09:00] VITALS: BP 178/90
[2021-06-22 10:50] VITALS: BP 95/53
[2021-06-22] MEDS: ACETAMINOPHEN 325MG TABLET PO PRN (11:05)
[2021-06-22] MEDS: SODIUM CHLORIDE 0.9% 1,000 ML IV SCH (13:30)
[2021-06-22 14:42] VITALS: BP 119/69
[2021-06-22 20:00] VITALS: BP 144/74
[2021-06-22] MEDS: ATORVASTATIN CALCIUM 20MG TABLET PO SCH (21:17)
[2021-06-23] MEDS: SODIUM CHLORIDE 0.9% 1,000 ML IV SCH ×2 (03:35→16:55)
[2021-06-23] MEDS: LEVOTHYROXINE SODIUM 100MCG TABLET PO SCH (06:00)
[2021-06-23 07:25] LABS: BASOPHILS % 0.6 % (0.0-2.0); EOSINOPHILS % 2.1 % (0.0-5.0); HEMATOCRIT. 32.6 % (42.0-52.0); MEAN CORPUSCULAR HEMOGLOBIN 28.3 pg (28.0-32.0); MEAN CORPUSCULAR VOLUME 83.8 fL (80.0-94.0); MEAN PLATELET VOLUME 8.1 fl (7.4-10.4); MONOCYTES % 8.3 % (2.0-8.0); PLATELET 254 x1000/uL (130-400); RED BLOOD CELL COUNT 3.89 mill/uL (4.7-6.1); RED CELL DISTRIBUTION WIDTH 13.7 % (11.6-14.6)
[2021-06-23 08:00] VITALS: BP 176/96
[2021-06-23] MEDS: ASPIRIN 81MG TABLET PO SCH (08:08)
[2021-06-23] MEDS: FAMOTIDINE 20MG TABLET PO SCH (08:08)
[2021-06-23] MEDS: HYDROCORTISONE 10MG TABLET PO SCH ×2 (08:08→16:55)
[2021-06-23] MEDS: FLUDROCORTISONE ACETATE 0.1MG TABLET PO SCH (08:09)
[2021-06-23] MEDS: SERTRALINE HCL 25MG TABLET PO SCH (08:09)
[2021-06-23] MEDS: DOCUSATE SODIUM 100MG CAPSULE PO SCH ×2 (08:09→16:55)
[2021-06-23] MEDS: CLOPIDOGREL 75MG TABLET PO SCH (08:09)
[2021-06-23] MEDS: CARVEDILOL 3.125 MG TABLET PO SCH ×2 (08:10→20:01)
[2021-06-23] MEDS: AMLODIPINE 2.5MG TABLET PO SCH (08:10)
[2021-06-23 10:00] VITALS: BP 144/74
[2021-06-23] MEDS ORDERED: FLOR PO (13:10)
[2021-06-23] MEDS ORDERED: AMLO2.5T45 PO (13:10)
[2021-06-23] MEDS ORDERED: HYDR-4379 PO ×2 (13:10)
[2021-06-23] MEDS ORDERED: FAMO20TA8 PO (13:10)
[2021-06-23] MEDS ORDERED: COR3 PO (13:10)
[2021-06-23 20:00] VITALS: BP 147/84
[2021-06-23] MEDS: ATORVASTATIN CALCIUM 20MG TABLET PO SCH (20:01)
[2021-06-24] MEDS: SODIUM CHLORIDE 0.9% 1,000 ML IV SCH ×2 (03:00→12:58)
[2021-06-24] MEDS: LEVOTHYROXINE SODIUM 100MCG TABLET PO SCH (06:13)
[2021-06-24 08:00] VITALS: BP 181/90
[2021-06-24] MEDS: ASPIRIN 81MG TABLET PO SCH (09:05)
[2021-06-24] MEDS: DOCUSATE SODIUM 100MG CAPSULE PO SCH (09:05)
[2021-06-24] MEDS: AMLODIPINE 2.5MG TABLET PO SCH (09:05)
[2021-06-24] MEDS: FAMOTIDINE 20MG TABLET PO SCH (09:06)
[2021-06-24] MEDS: SERTRALINE HCL 25MG TABLET PO SCH (09:06)
[2021-06-24] MEDS: HYDROCORTISONE 10MG TABLET PO SCH (09:06)
[2021-06-24] MEDS: CLOPIDOGREL 75MG TABLET PO SCH (09:06)
[2021-06-24] MEDS: CARVEDILOL 3.125 MG TABLET PO SCH (09:07)
[2021-06-24] MEDS: FLUDROCORTISONE ACETATE 0.1MG TABLET PO SCH (10:08)
[2021-06-24 11:13] LABS: BASOPHILS % 0.7 % (0.0-2.0); EOSINOPHILS % 2.2 % (0.0-5.0); HEMATOCRIT. 31.8 % (42.0-52.0); HEMOGLOBIN. 10.8 g/dL (14.0-18.0); LYMPHOCYTES % 26.4 % (20.0-50.0); MEAN CORPUSCULAR HEMOGLOBIN 28.3 pg (28.0-32.0); MEAN CORPUSCULAR VOLUME 83.5 fL (80.0-94.0); MEAN PLATELET VOLUME 7.8 fl (7.4-10.4); MONOCYTES % 7.3 % (2.0-8.0); NEUTROPHILS % 63.4 % (40.0-76.0); PLATELET 272 x1000/uL (130-400); RED CELL DISTRIBUTION WIDTH 13.7 % (11.6-14.6)
[2021-06-24 11:29] LABS: CHLORIDE 105 mEq/L (98-107)
[2021-06-24 13:09] VITALS: BP 135/85
[2021-06-24 14:08] LABS: METANEPHRINE PLASMA 20.8 pg/mL (0.0-88.0)
[2021-06-24 14:13] VITALS: BP 149/65
[2021-06-24] MEDS ORDERED: AMLODIPINE 2.5MG TABLET PO SCH (17:00)
[2021-06-24] MEDS ORDERED: FLUDROCORTISONE ACETATE 0.1MG TABLET PO SCH (17:00)
== END 2021-06-24 15:30 | disposition short-term general hospital (02) | DRG 683 ==
LOC: UNDOADMIN 19:58
PROVIDERS: ADMIT Physical Medicine & Rehabilitation Spinal Cord Injury Medicine; ATTEND Family Medicine Adult Medicine
DX: N17.9 Acute kidney failure, unspecified (principal); I16.1 Hypertensive emergency; E23.0 Hypopituitarism; E27.40 Unspecified adrenocortical insufficiency; F33.1 Major depressive disorder, recurrent, moderate; N18.30 Chronic kidney disease, stage 3 unspecified; B35.1 Tinea unguium; D64.9 Anemia, unspecified; E03.9 Hypothyroidism, unspecified; E78.5 Hyperlipidemia, unspecified; G47.00 Insomnia, unspecified; N20.0 Calculus of kidney; R26.9 Unspecified abnormalities of gait and mobility; I25.10 Atherosclerotic heart disease of native coronary artery without angina pectoris; I12.9 Hypertensive chronic kidney disease with stage 1 through stage 4 chronic kidney disease, or unspecified chronic kidney disease; Z82.49 Family history of ischemic heart disease and other diseases of the circulatory system; Z87.442 Personal history of urinary calculi; E55.9 Vitamin D deficiency, unspecified; G90.8 Other disorders of autonomic nervous system; I95.1 Orthostatic hypotension; Z79.02 Long term (current) use of antithrombotics/antiplatelets; Z79.52 Long term (current) use of systemic steroids; Z79.899 Other long term (current) drug therapy; Z87.891 Personal history of nicotine dependence; Z91.14 Patient's other noncompliance with medication regimen; Z91.19 Patient's noncompliance with other medical treatment and regimen; Z95.5 Presence of coronary angioplasty implant and graft; R53.81 Other malaise
CPT/HCPCS: 36415; 80048; 80053; 82306; 82340; 82533; 82575; 82607; 82728; 82746; 83540; 83550; 83735; 83835; 83970; 84134; 84153; 84300; 84439; 84443; 84560; 85025; 93005; 93970; 97110; 97112; 97116; 97162; 97166; 97530; 97535; C1893; J1071; J3420; J7030; G0103

== ENCOUNTER 2021-06-24 16:00 | Inpatient (IN) | payer MEDICARE, OTHER ==
[~2021-06-24] VITALS: Ht 180.3 cm; Wt 106.7 kg
[~2021-06-24 16:00] MED LIST changes: +AMLO2.5T45 PO; -CARV6.2548 MT; +COR3 PO; +FAMO20TA8 PO; +FLOR PO; -HYDR5TAB13 PO; -LOSA100T32 PO; -LOSA25TA3 PO
[2021-06-24 17:45] VITALS: BP 169/79
[2021-06-24] MEDS ORDERED: INFLUENZA VACCINE 05/PF 0.5 ML SYRINGE IM ONE (19:15)
[2021-06-24] MEDS ORDERED: PNEUMOCOCCAL 23-VAL P-SAC VAC 0.5 ML IM ONE (19:15)
[2021-06-24 20:00] VITALS: BP 149/57
[2021-06-24] MEDS: ATORVASTATIN CALCIUM 20MG TABLET PO SCH (22:10)
[2021-06-24] MEDS: CARVEDILOL 3.125 MG TABLET PO SCH (22:11)
[2021-06-25] VITALS: BP 170/85
[2021-06-25] MEDS: CLONIDINE 0.1MG TABLET PO PRN (00:30)
[2021-06-25 04:00] VITALS: BP 134/71
[2021-06-25 08:00] VITALS: BP 134/72
[2021-06-25] MEDS: ASPIRIN 81MG TABLET PO SCH (08:54)
[2021-06-25] MEDS: QUETIAPINE FUMARATE 25MG TABLET PO SCH (08:54)
[2021-06-25] MEDS: HYDROCORTISONE 10MG TABLET PO SCH ×2 (08:55→17:39)
[2021-06-25] MEDS: CLOPIDOGREL 75MG TABLET PO SCH (08:56)
[2021-06-25] MEDS: AMLODIPINE 2.5MG TABLET PO SCH (08:56)
[2021-06-25] MEDS: CARVEDILOL 3.125 MG TABLET PO SCH ×2 (08:56→20:13)
[2021-06-25] MEDS: FLUDROCORTISONE ACETATE 0.1MG TABLET PO SCH (08:57)
[2021-06-25] MEDS ORDERED: LEVOTHYROXINE SODIUM 100MCG TABLET PO SCH (09:00)
[2021-06-25 12:00] VITALS: BP 127/77
[2021-06-25 16:00] VITALS: BP_SYST 127; BP_SYST 132; BP_DIAS 70
[2021-06-25 20:00] VITALS: BP 147/69
[2021-06-25] MEDS: ATORVASTATIN CALCIUM 20MG TABLET PO SCH (20:14)
[2021-06-26] VITALS: BP_SYST 169; BP_SYST 170; BP_DIAS 86; BP_DIAS 89
[2021-06-26] MEDS: CLONIDINE 0.1MG TABLET PO PRN ×3 (00:25→21:16)
[2021-06-26 04:00] VITALS: BP_SYST 154; BP_SYST 155; BP_DIAS 71; BP_DIAS 78
[2021-06-26] MEDS: LEVOTHYROXINE SODIUM 100MCG TABLET PO SCH (06:11)
[2021-06-26 08:00] VITALS: BP_SYST 169; BP_SYST 176; BP_DIAS 74; BP_DIAS 98
[2021-06-26] MEDS: CARVEDILOL 3.125 MG TABLET PO SCH (08:26)
[2021-06-26] MEDS: FLUDROCORTISONE ACETATE 0.1MG TABLET PO SCH (08:26)
[2021-06-26] MEDS: QUETIAPINE FUMARATE 25MG TABLET PO SCH (08:26)
[2021-06-26] MEDS: ASPIRIN 81MG TABLET PO SCH (08:26)
[2021-06-26] MEDS: CLOPIDOGREL 75MG TABLET PO SCH (08:26)
[2021-06-26] MEDS: AMLODIPINE 2.5MG TABLET PO SCH (08:27)
[2021-06-26] MEDS: HYDROCORTISONE 10MG TABLET PO SCH ×2 (08:27→17:17)
[2021-06-26 12:00] VITALS: BP_SYST 123; BP_SYST 137; BP_SYST 87; BP_DIAS 57; BP_DIAS 67; BP_DIAS 73
[2021-06-26 16:00] VITALS: BP_SYST 111; BP_SYST 137; BP_SYST 138; BP_DIAS 71; BP_DIAS 74; BP_DIAS 79
[2021-06-26 20:00] VITALS: BP_SYST 149; BP_SYST 154; BP_SYST 169; BP_DIAS 74; BP_DIAS 84; BP_DIAS 87
[2021-06-26] MEDS: CARVEDILOL 6.25 MG TABLET PO SCH (21:16)
[2021-06-26] MEDS: ATORVASTATIN CALCIUM 20MG TABLET PO SCH (21:16)
[2021-06-27] VITALS (8 sets, daily range): BP systolic 115–173; BP diastolic 63–89
[2021-06-27] MEDS: LEVOTHYROXINE SODIUM 100MCG TABLET PO SCH (05:35)
[2021-06-27] MEDS: AMLODIPINE 2.5MG TABLET PO SCH (08:42)
[2021-06-27] MEDS: QUETIAPINE FUMARATE 25MG TABLET PO SCH (08:43)
[2021-06-27] MEDS: FLUDROCORTISONE ACETATE 0.1MG TABLET PO SCH ×2 (08:43→17:17)
[2021-06-27] MEDS: CLOPIDOGREL 75MG TABLET PO SCH (08:43)
[2021-06-27] MEDS: ASPIRIN 81MG TABLET PO SCH (08:44)
[2021-06-27] MEDS: HYDROCORTISONE 10MG TABLET PO SCH ×2 (08:44→17:17)
[2021-06-27] MEDS: ERGOCALCIFEROL 50000UNITS CAPSULE PO SCH (08:44)
[2021-06-27] MEDS: CARVEDILOL 6.25 MG TABLET PO SCH ×2 (08:45→20:20)
[2021-06-27] MEDS: DEXT 5%/0.45% NACL 1000ML 1,000 ML IV SCH ×2 (12:14→20:20)
[2021-06-27] MEDS: ATORVASTATIN CALCIUM 20MG TABLET PO SCH (20:20)
[2021-06-28] VITALS (7 sets, daily range): BP systolic 102–193; BP diastolic 65–107
[2021-06-28] MEDS: LEVOTHYROXINE SODIUM 100MCG TABLET PO SCH (05:15)
[2021-06-28 06:33] LABS: BASOPHILS % 0.4 % (0.0-2.0); EOSINOPHILS % 1.6 % (0.0-5.0); HEMATOCRIT. 35.9 % (42.0-52.0); HEMOGLOBIN. 11.8 g/dL (14.0-18.0); LYMPHOCYTES % 28.5 % (20.0-50.0); MEAN CORPUSCULAR HEMOGLOBIN 28.4 pg (28.0-32.0); MEAN CORPUSCULAR VOLUME 86.1 fL (80.0-94.0); MEAN PLATELET VOLUME 8.2 fl (7.4-10.4); MONOCYTES % 7.2 % (2.0-8.0); NEUTROPHILS % 62.3 % (40.0-76.0); PLATELET 295 x1000/uL (130-400); RED BLOOD CELL COUNT 4.17 mill/uL (4.7-6.1); RED CELL DISTRIBUTION WIDTH 13.7 % (11.6-14.6)
[2021-06-28 06:34] LABS: CHLORIDE 103 mEq/L (98-107)
[2021-06-28] MEDS: FLUDROCORTISONE ACETATE 0.1MG TABLET PO SCH ×2 (08:21→17:19)
[2021-06-28] MEDS: HYDROCORTISONE 10MG TABLET PO SCH ×2 (08:21→17:17)
[2021-06-28] MEDS: QUETIAPINE FUMARATE 25MG TABLET PO SCH (08:21)
[2021-06-28] MEDS: CLOPIDOGREL 75MG TABLET PO SCH (08:21)
[2021-06-28] MEDS: ASPIRIN 81MG TABLET PO SCH (08:21)
[2021-06-28] MEDS: AMLODIPINE 2.5MG TABLET PO SCH ×2 (08:22→17:17)
[2021-06-28] MEDS: CARVEDILOL 6.25 MG TABLET PO SCH ×2 (08:22→21:19)
[2021-06-28] MEDS: DEXT 5%/0.45% NACL 1000ML 1,000 ML IV SCH (11:15)
[2021-06-28] MEDS: ATORVASTATIN CALCIUM 20MG TABLET PO SCH (21:18)
[2021-06-29] VITALS: BP_SYST 161; BP_SYST 172; BP_SYST 179; BP_DIAS 100; BP_DIAS 86; BP_DIAS 95
[2021-06-29] MEDS: DEXT 5%/0.45% NACL 1000ML 1,000 ML IV SCH ×2 (00:11→13:13)
[2021-06-29 04:00] VITALS: BP_SYST 148; BP_SYST 153; BP_SYST 181; BP_DIAS 101; BP_DIAS 82; BP_DIAS 93
[2021-06-29] MEDS: LEVOTHYROXINE SODIUM 100MCG TABLET PO SCH (06:07)
[2021-06-29 08:30] VITALS: BP_SYST 152; BP_SYST 171; BP_SYST 172; BP_DIAS 66; BP_DIAS 68; BP_DIAS 72
[2021-06-29] MEDS: FLUDROCORTISONE ACETATE 0.1MG TABLET PO SCH ×2 (09:49→17:57)
[2021-06-29] MEDS: CLOPIDOGREL 75MG TABLET PO SCH (09:50)
[2021-06-29] MEDS: QUETIAPINE FUMARATE 25MG TABLET PO SCH (09:51)
[2021-06-29] MEDS: CARVEDILOL 6.25 MG TABLET PO SCH ×2 (09:51→21:41)
[2021-06-29] MEDS: AMLODIPINE 2.5MG TABLET PO SCH ×2 (09:51→17:57)
[2021-06-29] MEDS: ASPIRIN 81MG TABLET PO SCH (09:52)
[2021-06-29] MEDS: HYDROCORTISONE 10MG TABLET PO SCH ×2 (09:52→17:58)
[2021-06-29 12:00] VITALS: BP 168/64
[2021-06-29 16:00] VITALS: BP_SYST 148; BP_SYST 164; BP_SYST 168; BP_DIAS 64; BP_DIAS 68; BP_DIAS 72
[2021-06-29 20:00] VITALS: BP 146/73
[2021-06-29] MEDS: ATORVASTATIN CALCIUM 20MG TABLET PO SCH (21:41)
[2021-06-29] MEDS: POLYVINYL ALCOHOL OPHTH DROPS 15ML BOTHEYE PRN (21:41)
[2021-06-30] VITALS (7 sets, daily range): BP systolic 141–170; BP diastolic 62–89
[2021-06-30] MEDS: DEXT 5%/0.45% NACL 1000ML 1,000 ML IV SCH ×2 (00:57→17:30)
[2021-06-30] MEDS: POLYVINYL ALCOHOL OPHTH DROPS 15ML BOTHEYE PRN ×3 (05:06→20:06)
[2021-06-30] MEDS: LEVOTHYROXINE SODIUM 100MCG TABLET PO SCH (05:41)
[2021-06-30] MEDS: CLONIDINE 0.1MG TABLET PO PRN (05:54)
[2021-06-30 06:47] LABS: BASOPHILS % 0.5 % (0.0-2.0); EOSINOPHILS % 2.1 % (0.0-5.0); HEMATOCRIT. 34.9 % (42.0-52.0); HEMOGLOBIN. 11.2 g/dL (14.0-18.0); LYMPHOCYTES % 27.4 % (20.0-50.0); MEAN CORPUSCULAR VOLUME 87.2 fL (80.0-94.0); MEAN PLATELET VOLUME 8.6 fl (7.4-10.4); PLATELET 278 x1000/uL (130-400); RED BLOOD CELL COUNT 4.01 mill/uL (4.7-6.1); RED CELL DISTRIBUTION WIDTH 14.7 % (11.6-14.6)
[2021-06-30] MEDS: QUETIAPINE FUMARATE 25MG TABLET PO SCH (08:53)
[2021-06-30] MEDS: ASPIRIN 81MG TABLET PO SCH (08:53)
[2021-06-30] MEDS: AMLODIPINE 2.5MG TABLET PO SCH (08:53)
[2021-06-30] MEDS: HYDROCORTISONE 10MG TABLET PO SCH ×2 (08:54→17:27)
[2021-06-30] MEDS: CLOPIDOGREL 75MG TABLET PO SCH (08:54)
[2021-06-30] MEDS: FLUDROCORTISONE ACETATE 0.1MG TABLET PO SCH ×2 (08:54→17:29)
[2021-06-30] MEDS: CARVEDILOL 6.25 MG TABLET PO SCH ×2 (08:55→20:07)
[2021-06-30] MEDS: CALCIUM 1250MG TABLET (500MG ELEMENTAL CALCIUM) PO SCH (17:27)
[2021-06-30] MEDS ORDERED: AMLODIPINE 2.5MG TABLET PO SCH (20:00)
[2021-06-30] MEDS: ATORVASTATIN CALCIUM 20MG TABLET PO SCH (20:06)
[2021-07-01] VITALS: BP_SYST 147; BP_SYST 155; BP_SYST 158; BP_DIAS 71; BP_DIAS 85; BP_DIAS 88
[2021-07-01] MEDS: DEXT 5%/0.45% NACL 1000ML 1,000 ML IV SCH (01:39)
[2021-07-01 04:00] VITALS: BP_SYST 189; BP_SYST 196; BP_DIAS 101; BP_DIAS 102; BP_DIAS 91
[2021-07-01] MEDS: CLONIDINE 0.1MG TABLET PO PRN (04:17)
[2021-07-01] MEDS: LEVOTHYROXINE SODIUM 100MCG TABLET PO SCH (05:55)
[2021-07-01 08:00] VITALS: BP 175/93
[2021-07-01] MEDS ORDERED: AMLODIPINE 5MG TABLET PO SCH (08:00)
[2021-07-01] MEDS: CALCIUM 1250MG TABLET (500MG ELEMENTAL CALCIUM) PO SCH (08:26)
[2021-07-01] MEDS: CLOPIDOGREL 75MG TABLET PO SCH (08:26)
[2021-07-01] MEDS: CARVEDILOL 6.25 MG TABLET PO SCH ×2 (08:26→20:17)
[2021-07-01] MEDS: HYDROCORTISONE 10MG TABLET PO SCH ×2 (08:26→16:46)
[2021-07-01] MEDS: QUETIAPINE FUMARATE 25MG TABLET PO SCH (08:26)
[2021-07-01] MEDS: FLUDROCORTISONE ACETATE 0.1MG TABLET PO SCH ×2 (08:26→16:46)
[2021-07-01] MEDS: ASPIRIN 81MG TABLET PO SCH (08:26)
[2021-07-01 11:05] LABS: BASOPHILS % 0.6 % (0.0-2.0); EOSINOPHILS % 2.1 % (0.0-5.0); HEMATOCRIT. 34.8 % (42.0-52.0); HEMOGLOBIN. 11.4 g/dL (14.0-18.0); LYMPHOCYTES % 27.3 % (20.0-50.0); MEAN CORPUSCULAR HEMOGLOBIN 27.9 pg (28.0-32.0); MEAN CORPUSCULAR VOLUME 85.5 fL (80.0-94.0); MEAN PLATELET VOLUME 8.5 fl (7.4-10.4); MONOCYTES % 7.8 % (2.0-8.0); NEUTROPHILS % 62.2 % (40.0-76.0); PLATELET 280 x1000/uL (130-400); RED BLOOD CELL COUNT 4.07 mill/uL (4.7-6.1); RED CELL DISTRIBUTION WIDTH 14.2 % (11.6-14.6)
[2021-07-01 11:44] LABS: CHLORIDE 104 mEq/L (98-107)
[2021-07-01 12:00] VITALS: BP_SYST 105; BP_SYST 109; BP_SYST 117; BP_DIAS 56; BP_DIAS 61; BP_DIAS 66
[2021-07-01 16:00] VITALS: BP_SYST 105; BP_SYST 111; BP_SYST 117; BP_DIAS 69; BP_DIAS 73; BP_DIAS 81
[2021-07-01 20:00] VITALS: BP 111/60
[2021-07-01] MEDS: ATORVASTATIN CALCIUM 20MG TABLET PO SCH (20:16)
[2021-07-01] MEDS: AMLODIPINE 5MG TABLET PO SCH (20:17)
[2021-07-02] VITALS: BP_SYST 131; BP_SYST 146; BP_SYST 159; BP_DIAS 76; BP_DIAS 84; BP_DIAS 89
[2021-07-02 04:00] VITALS: BP 159/64
[2021-07-02] MEDS: LEVOTHYROXINE SODIUM 100MCG TABLET PO SCH (05:50)
[2021-07-02 07:00] LABS: BASOPHILS % 0.6 % (0.0-2.0); EOSINOPHILS % 2.2 % (0.0-5.0); HEMATOCRIT. 34.5 % (42.0-52.0); HEMOGLOBIN. 11.3 g/dL (14.0-18.0); MEAN CORPUSCULAR HEMOGLOBIN 28.1 pg (28.0-32.0); MEAN CORPUSCULAR VOLUME 86.3 fL (80.0-94.0); MEAN PLATELET VOLUME 8.3 fl (7.4-10.4); MONOCYTES % 7.7 % (2.0-8.0); NEUTROPHILS % 58.5 % (40.0-76.0); PLATELET 281 x1000/uL (130-400); RED CELL DISTRIBUTION WIDTH 14.2 % (11.6-14.6)
[2021-07-02 07:13] LABS: CHLORIDE 104 mEq/L (98-107)
[2021-07-02 08:00] VITALS: BP_SYST 142; BP_SYST 153; BP_SYST 156; BP_DIAS 103; BP_DIAS 80; BP_DIAS 87
[2021-07-02] MEDS: AMLODIPINE 5MG TABLET PO SCH ×2 (08:23→20:01)
[2021-07-02] MEDS: ASPIRIN 81MG TABLET PO SCH (08:23)
[2021-07-02] MEDS: FLUDROCORTISONE ACETATE 0.1MG TABLET PO SCH (08:23)
[2021-07-02] MEDS: CLOPIDOGREL 75MG TABLET PO SCH (08:23)
[2021-07-02] MEDS: QUETIAPINE FUMARATE 25MG TABLET PO SCH (08:23)
[2021-07-02] MEDS: CARVEDILOL 6.25 MG TABLET PO SCH ×2 (08:24→20:01)
[2021-07-02] MEDS: HYDROCORTISONE 10MG TABLET PO SCH ×2 (08:24→17:08)
[2021-07-02] MEDS: CALCIUM 1250MG TABLET (500MG ELEMENTAL CALCIUM) PO SCH (08:24)
[2021-07-02] MEDS ORDERED: TESTOSTERONE CYPIONATE IM NR (10:00)
[2021-07-02] MEDS: POLYVINYL ALCOHOL OPHTH DROPS 15ML BOTHEYE PRN ×2 (10:04→15:03)
[2021-07-02 12:00] VITALS: BP_SYST 116; BP_SYST 121; BP_SYST 124; BP_DIAS 76; BP_DIAS 82; BP_DIAS 83
[2021-07-02] MEDS: LOSARTAN POTASSIUM 25 MG TABLET PO SCH (14:30)
[2021-07-02 16:00] VITALS: BP_SYST 126; BP_SYST 130; BP_SYST 135; BP_DIAS 66; BP_DIAS 78; BP_DIAS 81
[2021-07-02 20:00] VITALS: BP 130/61
[2021-07-02] MEDS: ATORVASTATIN CALCIUM 20MG TABLET PO SCH (20:01)
[2021-07-03] VITALS: BP_SYST 154; BP_SYST 160; BP_SYST 169; BP_DIAS 76; BP_DIAS 78; BP_DIAS 84
[2021-07-03] MEDS: CLONIDINE 0.1MG TABLET PO PRN (00:02)
[2021-07-03 04:05] VITALS: BP 117/58
[2021-07-03] MEDS: LEVOTHYROXINE SODIUM 100MCG TABLET PO SCH (05:40)
[2021-07-03 07:01] LABS: BASOPHILS % 0.5 % (0.0-2.0); EOSINOPHILS % 2.5 % (0.0-5.0); HEMATOCRIT. 33.5 % (42.0-52.0); HEMOGLOBIN. 11.1 g/dL (14.0-18.0); LYMPHOCYTES % 32.6 % (20.0-50.0); MEAN CORPUSCULAR HEMOGLOBIN 28.3 pg (28.0-32.0); MEAN CORPUSCULAR VOLUME 85.7 fL (80.0-94.0); MEAN PLATELET VOLUME 8.4 fl (7.4-10.4); MONOCYTES % 7.8 % (2.0-8.0); NEUTROPHILS % 56.6 % (40.0-76.0); PLATELET 258 x1000/uL (130-400); RED BLOOD CELL COUNT 3.91 mill/uL (4.7-6.1); RED CELL DISTRIBUTION WIDTH 14.6 % (11.6-14.6)
[2021-07-03 07:48] LABS: CHLORIDE 104 mEq/L (98-107)
[2021-07-03 08:00] VITALS: BP 132/68
[2021-07-03] MEDS: AMLODIPINE 5MG TABLET PO SCH ×2 (08:20→21:03)
[2021-07-03] MEDS: CALCIUM 1250MG TABLET (500MG ELEMENTAL CALCIUM) PO SCH (08:20)
[2021-07-03] MEDS: HYDROCORTISONE 10MG TABLET PO SCH ×2 (08:20→16:23)
[2021-07-03] MEDS: CLOPIDOGREL 75MG TABLET PO SCH (08:20)
[2021-07-03] MEDS: CARVEDILOL 6.25 MG TABLET PO SCH ×2 (08:20→21:03)
[2021-07-03] MEDS: QUETIAPINE FUMARATE 25MG TABLET PO SCH (08:21)
[2021-07-03] MEDS: LOSARTAN POTASSIUM 25 MG TABLET PO SCH (08:21)
[2021-07-03] MEDS: ASPIRIN 81MG TABLET PO SCH (08:21)
[2021-07-03 12:00] VITALS: BP 121/76
[2021-07-03 16:00] VITALS: BP_SYST 116; BP_SYST 118; BP_SYST 125; BP_DIAS 68; BP_DIAS 69; BP_DIAS 71
[2021-07-03] MEDS: POLYVINYL ALCOHOL OPHTH DROPS 15ML BOTHEYE PRN ×2 (16:23→22:39)
[2021-07-03 20:00] VITALS: BP_SYST 121; BP_SYST 124; BP_DIAS 61; BP_DIAS 67
[2021-07-03] MEDS: ATORVASTATIN CALCIUM 20MG TABLET PO SCH (21:03)
[2021-07-04] VITALS: BP 145/81
[2021-07-04 04:00] VITALS: BP 150/79
[2021-07-04 06:20] LABS: BASOPHILS % 0.4 % (0.0-2.0); EOSINOPHILS % 2.6 % (0.0-5.0); HEMATOCRIT. 34.3 % (42.0-52.0); HEMOGLOBIN. 11.1 g/dL (14.0-18.0); LYMPHOCYTES % 32.7 % (20.0-50.0); MEAN CORPUSCULAR HEMOGLOBIN 27.8 pg (28.0-32.0); MEAN CORPUSCULAR VOLUME 86.3 fL (80.0-94.0); MEAN PLATELET VOLUME 8.5 fl (7.4-10.4); MONOCYTES % 5.7 % (2.0-8.0); NEUTROPHILS % 58.6 % (40.0-76.0); PLATELET 283 x1000/uL (130-400); RED BLOOD CELL COUNT 3.98 mill/uL (4.7-6.1); RED CELL DISTRIBUTION WIDTH 14.7 % (11.6-14.6)
[2021-07-04] MEDS: LEVOTHYROXINE SODIUM 100MCG TABLET PO SCH (06:30)
[2021-07-04 06:32] LABS: CHLORIDE 102 mEq/L (98-107)
[2021-07-04 08:00] VITALS: BP_SYST 181; BP_SYST 185; BP_DIAS 89; BP_DIAS 92
[2021-07-04] MEDS: CALCIUM 1250MG TABLET (500MG ELEMENTAL CALCIUM) PO SCH (08:52)
[2021-07-04] MEDS: HYDROCORTISONE 10MG TABLET PO SCH ×2 (08:52→16:16)
[2021-07-04] MEDS: QUETIAPINE FUMARATE 25MG TABLET PO SCH (08:52)
[2021-07-04] MEDS: ASPIRIN 81MG TABLET PO SCH (08:52)
[2021-07-04] MEDS: ERGOCALCIFEROL 50000UNITS CAPSULE PO SCH (08:52)
[2021-07-04] MEDS: CLOPIDOGREL 75MG TABLET PO SCH (08:52)
[2021-07-04] MEDS: AMLODIPINE 5MG TABLET PO SCH (08:53)
[2021-07-04] MEDS: CARVEDILOL 6.25 MG TABLET PO SCH (08:53)
[2021-07-04] MEDS: LOSARTAN POTASSIUM 25 MG TABLET PO SCH (08:53)
[2021-07-04] MEDS: CLONIDINE 0.1MG TABLET PO PRN (08:55)
[2021-07-04 12:24] VITALS: BP 90/48
[2021-07-04 15:58] VITALS: BP_SYST 104; BP_SYST 88; BP_DIAS 47; BP_DIAS 63
[2021-07-04 20:00] VITALS: BP 122/77
[2021-07-04] MEDS: ATORVASTATIN CALCIUM 20MG TABLET PO SCH (21:14)
[2021-07-04] MEDS: CARVEDILOL 3.125 MG TABLET PO SCH (21:14)
[2021-07-04] MEDS: AMLODIPINE 2.5MG TABLET PO SCH (21:14)
[2021-07-05] VITALS: BP 145/65
[2021-07-05] MEDS: POLYVINYL ALCOHOL OPHTH DROPS 15ML BOTHEYE PRN (02:16)
[2021-07-05 04:00] VITALS: BP_SYST 142; BP_SYST 143; BP_SYST 155; BP_DIAS 80; BP_DIAS 81; BP_DIAS 86
[2021-07-05] MEDS: LEVOTHYROXINE SODIUM 100MCG TABLET PO SCH (05:54)
[2021-07-05 08:00] VITALS: BP_SYST 113; BP_SYST 151; BP_SYST 153; BP_DIAS 74; BP_DIAS 76; BP_DIAS 84
[2021-07-05] MEDS: CLOPIDOGREL 75MG TABLET PO SCH (08:58)
[2021-07-05] MEDS: CALCIUM 1250MG TABLET (500MG ELEMENTAL CALCIUM) PO SCH (08:58)
[2021-07-05] MEDS: ASPIRIN 81MG TABLET PO SCH (08:58)
[2021-07-05] MEDS: HYDROCORTISONE 10MG TABLET PO SCH ×2 (08:59→19:18)
[2021-07-05] MEDS: CARVEDILOL 3.125 MG TABLET PO SCH ×2 (08:59→21:29)
[2021-07-05] MEDS: QUETIAPINE FUMARATE 25MG TABLET PO SCH (08:59)
[2021-07-05] MEDS: AMLODIPINE 2.5MG TABLET PO SCH ×2 (09:00→21:28)
[2021-07-05] MEDS: LOSARTAN POTASSIUM 25 MG TABLET PO SCH (09:09)
[2021-07-05 12:00] VITALS: BP 102/76
[2021-07-05 16:00] VITALS: BP 111/67
[2021-07-05 20:00] VITALS: BP 131/60
[2021-07-05] MEDS: ATORVASTATIN CALCIUM 20MG TABLET PO SCH (21:26)
[2021-07-06] VITALS: BP 138/76
[2021-07-06] MEDS: POLYVINYL ALCOHOL OPHTH DROPS 15ML BOTHEYE PRN (03:47)
[2021-07-06] MEDS: LEVOTHYROXINE SODIUM 100MCG TABLET PO SCH (06:12)
[2021-07-06 06:14] LABS: BASOPHILS % 0.5 % (0.0-2.0); EOSINOPHILS % 2.2 % (0.0-5.0); HEMATOCRIT. 35.6 % (42.0-52.0); HEMOGLOBIN. 11.7 g/dL (14.0-18.0); MEAN CORPUSCULAR HEMOGLOBIN 28.4 pg (28.0-32.0); MEAN CORPUSCULAR VOLUME 86.3 fL (80.0-94.0); MEAN PLATELET VOLUME 8.7 fl (7.4-10.4); MONOCYTES % 6.6 % (2.0-8.0); NEUTROPHILS % 64.7 % (40.0-76.0); PLATELET 266 x1000/uL (130-400); RED BLOOD CELL COUNT 4.13 mill/uL (4.7-6.1); RED CELL DISTRIBUTION WIDTH 14.8 % (11.6-14.6)
[2021-07-06 08:00] VITALS: BP_SYST 127; BP_SYST 131; BP_SYST 142; BP_DIAS 55; BP_DIAS 71; BP_DIAS 73
[2021-07-06] MEDS: CLOPIDOGREL 75MG TABLET PO SCH (08:58)
[2021-07-06] MEDS: QUETIAPINE FUMARATE 25MG TABLET PO SCH (08:58)
[2021-07-06] MEDS: AMLODIPINE 2.5MG TABLET PO SCH (08:58)
[2021-07-06] MEDS: LOSARTAN POTASSIUM 25 MG TABLET PO SCH (08:58)
[2021-07-06] MEDS: CALCIUM 1250MG TABLET (500MG ELEMENTAL CALCIUM) PO SCH (08:59)
[2021-07-06] MEDS: CARVEDILOL 3.125 MG TABLET PO SCH (08:59)
[2021-07-06] MEDS: ASPIRIN 81MG TABLET PO SCH (08:59)
[2021-07-06] MEDS: HYDROCORTISONE 10MG TABLET PO SCH ×2 (08:59→17:38)
[2021-07-06 12:00] VITALS: BP 130/70
[2021-07-06] MEDS ORDERED: QUET25TA PO (12:23)
[2021-07-06] MEDS ORDERED: CLOP75TA15 PO (12:23)
[2021-07-06] MEDS ORDERED: LOSA25TA3 PO (12:23)
[2021-07-06] MEDS ORDERED: COR3 PO (12:23)
[2021-07-06] MEDS ORDERED: AMLO2.5T45 PO (12:23)
[2021-07-06] MEDS ORDERED: HYDR-4379 PO ×2 (12:23)
[2021-07-06] MEDS ORDERED: ASPI-1160 PO (12:23)
[2021-07-06] MEDS ORDERED: ATOR20TA PO (12:23)
[2021-07-06] MEDS ORDERED: LEVO100T9 PO (12:23)
[2021-07-06 16:00] VITALS: BP 126/87
[2021-07-08 09:09] LABS: VMA 24HR URINE 2.9 mg/24 hr (0.0-7.5); VMA CONCENTRATION 1.1 mg/L (Undefined)
[2021-07-08 13:10] LABS: DOPAMINE URINE 168 ug/L (Undefined); DOPAMINE URINE 24 HR 588 ug/24 hr (0-510); EPINEPHRINE URINE <1 ug/L (Undefined); EPINEPHRINE URINE 24 HR <4 ug/24 hr (0-20); NOREPINEPHRINE UR 24 HR 49 ug/24 hr (0-135); NOREPINEPHRINE URINE 14 ug/L (Undefined)
[2021-07-08 14:08] LABS: METANEPHRINE PLASMA 10.4 pg/mL (0.0-88.0)
[2021-07-12 09:06] LABS: METANEPHRINE 24 HR UR 37 ug/24 hr (58-276); METANEPHRINE UR 14 ug/L (Undefined); NORMETANEPHRINE 24 HR UR 254 ug/24 hr (156-729); NORMETANEPHRINE UR 95 ug/L (Undefined)
[2021-07-23] MEDS ORDERED: CARV3.1242 MT (08:38)
[2021-07-23] MEDS ORDERED: ATOR20TA65 MT (08:38)
[2021-07-23] MEDS ORDERED: AMLO5TAB88 MT (08:38)
[2021-07-23] MEDS ORDERED: CLOP-31 MT (08:38)
[2021-07-23] MEDS ORDERED: HYDR-4379 MT (08:38)
[2021-07-23] MEDS ORDERED: QUET25TA MT (08:38)
[2021-07-23] MEDS ORDERED: LOSA25TA26 MT (08:38)
[2021-07-23] MEDS ORDERED: LEVO100T9 MT (08:38)
[2021-07-23] MEDS ORDERED: ASPI-1406 MT (08:38)
== END 2021-07-06 18:50 | disposition home or self-care (01) | DRG 73 ==
LOC: 7EST 16:00
PROVIDERS: ADMIT Family Medicine Adult Medicine; ATTEND Family Medicine Adult Medicine
DX: G90.8 Other disorders of autonomic nervous system (principal); E43 Unspecified severe protein-calorie malnutrition; E27.40 Unspecified adrenocortical insufficiency; N17.9 Acute kidney failure, unspecified; I16.1 Hypertensive emergency; I95.1 Orthostatic hypotension; D64.9 Anemia, unspecified; E03.9 Hypothyroidism, unspecified; E78.5 Hyperlipidemia, unspecified; F32.9 Major depressive disorder, single episode, unspecified; G47.00 Insomnia, unspecified; I12.9 Hypertensive chronic kidney disease with stage 1 through stage 4 chronic kidney disease, or unspecified chronic kidney disease; I25.10 Atherosclerotic heart disease of native coronary artery without angina pectoris; N18.30 Chronic kidney disease, stage 3 unspecified; E89.3 Postprocedural hypopituitarism; D51.9 Vitamin B12 deficiency anemia, unspecified; F32.A Depression, unspecified; B35.1 Tinea unguium; R26.9 Unspecified abnormalities of gait and mobility; R53.81 Other malaise; R62.7 Adult failure to thrive; Z91.14 Patient's other noncompliance with medication regimen; Z95.5 Presence of coronary angioplasty implant and graft; Z79.02 Long term (current) use of antithrombotics/antiplatelets; Z79.82 Long term (current) use of aspirin; Z79.899 Other long term (current) drug therapy; Z82.49 Family history of ischemic heart disease and other diseases of the circulatory system; Z68.32 Body mass index [BMI] 32.0-32.9, adult; Z86.39 Personal history of other endocrine, nutritional and metabolic disease; E83.51 Hypocalcemia
CPT/HCPCS: 36415; 70544; 70553; 80048; 80053; 82384; 82570; 83735; 83835; 84585; 85025; 90686; 90732; 93005; 97110; 97116; 97162; 97166; 97530; 97535; J1071

== ENCOUNTER 2024-03-12 14:21 | Emergency (ER) | payer MEDICARE, OTHER ==
[~2024-03-12] VITALS: Ht 180.3 cm; Wt 108.9 kg
[~2024-03-12 14:21] MED LIST changes: +AMLO5TAB88 MT; +ASPI-1160 PO; +ASPI-1406 MT; -ASPI-1497 PO; +ATOR20TA PO; +ATOR20TA65 MT; -ATOR20TA65 PO; +CARV3.1242 MT; +CLOP-31 MT; -CLOP-31 PO; +CLOP75TA15 PO; -FAMO20TA8 PO; -FLOR PO; +HYDR-4379 MT; +LEVO100T9 MT; +LOSA-412 PO; +LOSA25TA26 MT; +QUET25TA MT; +QUET25TA PO; -SERT25TA PO
[2024-03-12 14:41] VITALS: O2SAT 96
[2024-03-12 15:00] VITALS: TEMP 98.3
[2024-03-12 15:49] LABS: BASOPHILS % 0.5 % (0.0-2.0); HEMATOCRIT. 40.8 % (42.0-52.0); HEMOGLOBIN. 13.6 g/dL (14.0-18.0); LYMPHOCYTES % 36.1 % (20.0-50.0); MEAN CORPUSCULAR HEMOGLOBIN 27.8 pg (28.0-32.0); MEAN CORPUSCULAR HGB CONC 33.4 g/dL (31.0-37.0); MEAN CORPUSCULAR VOLUME 83.4 fL (80.0-94.0); MEAN PLATELET VOLUME 8.2 fl (7.4-10.4); MONOCYTES % 6.7 % (2.0-8.0); NEUTROPHILS % 53.7 % (40.0-76.0); PLATELET 304 x1000/uL (130-400); RED CELL DISTRIBUTION WIDTH 14.1 % (11.6-14.6)
[2024-03-12 15:56] LABS: CHLORIDE 103 mEq/L (98-107); POTASSIUM 3.5 mEq/L (3.5-5.1); SODIUM 137 mEq/L (136-145)
[2024-03-12 15:57] LABS: CARBON DIOXIDE 23 mEq/L (21-32)
[2024-03-12 15:58] LABS: CALCIUM 9.8 mg/dL (8.7-10.4)
[2024-03-12 16:02] LABS: CREATININE 1.5 mg/dL (0.6-1.3)
[2024-03-12 16:03] LABS: GLUCOSE 91 mg/dL (70-105); UREA NITROGEN BLOOD 11 mg/dL (9-23)
[2024-03-12 16:05] LABS: TROPONIN I HIGH SENSITIVITY 9 ng/L (3.0-53)
[2024-03-12] MEDS: LABETALOL 5MG/ML 4ML INJ IV ONE (16:11)
[2024-03-12 16:49] LABS: INR 1.1; PARTIAL THROMBOPLASTIN TIME 32.8 sec (23.4-31.0); PROTHROMBIN TIME 12.3 sec (9.6-11.0)
[2024-03-12 17:10] VITALS: BP 155/95; PULSE 75; RESP 16
== END 2024-03-12 17:47 | disposition home or self-care (01) ==
LOC: ER 14:21
DX: I12.0 Hypertensive chronic kidney disease with stage 5 chronic kidney disease or end stage renal disease (principal); N18.6 End stage renal disease; E11.9 Type 2 diabetes mellitus without complications; Z98.890 Other specified postprocedural states
CPT/HCPCS: 99285; 96374; 71045; 80048; 83880; 85025; 85610; 85730; 84484; 36415; 93005; J3490